=== PATIENT | male | born 1955 | race Caucasian/White ===

== ENCOUNTER 2016-12-11 09:32 | Inpatient (IN) | payer BC, MEDICAID ==
[~2016-12-11] VITALS: Ht 165.1 cm; Wt 80.7 kg
[~2016-12-11 09:32] MED LIST: ALBUT2 CONTNEB; ASPI-605 PO; COLE625T PO; FLUT1DIS3 IH; PRAV20TA PO
--- NOTE | 2016-12-11 09:40 | NUR ---
AAOX3, CAME TO ER C/O COUGH WITH CONGESTION, FEVER, WHEEZING ON AUSCULTATION X 4 DAYS. RESP IS SLIGHTLY LABORED. SKIN IS WARM AND DRY. AWAITING MD FOR EVAL.
--- NOTE | 2016-12-11 09:56 | NUR ---
BOOK JACKET COVER MACHINE OPERATOR AT BEDSIDE FOR CXR
--- NOTE | 2016-12-11 09:56 | NUR ---
CALLED RT FOR BREATHING TREATMENT
[2016-12-11] MEDS ORDERED: ALBUTEROL FS 2.5 MG/3 ML VIAL.NEB NEB ONE (10:00)
[2016-12-11] MEDS ORDERED: ALBUTEROL FS 2.5 MG/3 ML VIAL.NEB ONE (10:03)
--- NOTE | 2016-12-11 10:10 | NUR ---
IV ACCESSED TO [facility] 20. BLOOD SAMPLE SENT TO LAB
[2016-12-11 10:21] LABS: BASOPHILS % (AUTO) 0.2 % (0.0-2.0); EOSINOPHILS # (AUTO) 0.1 /CMM (0.0-0.7); EOSINOPHILS % (AUTO) 1.2 % (0.0-6.0); HEMATOCRIT 42 % (39-51); HEMOGLOBIN 14.1 g/dL (13.5-17.5); LYMPHOCYTES # (AUTO) 1.2 /CMM (0.8-4.8); LYMPHOCYTES % (AUTO) 23.3 % (20.0-44.0); MEAN CORPUSCULAR HEMOGLOBIN 30 PG (26.0-33.0); MEAN CORPUSCULAR HGB CONC 34 g/dl (31.0-36.0); MEAN CORPUSCULAR VOLUME 89 fL (80-96); MONOCYTES # (AUTO) 0.3 /CMM (0.1-1.30); MONOCYTES % (AUTO) 5.5 % (2.0-12.0); NEUTROPHILS # (AUTO) 3.6 /CMM (1.8-8.9); NEUTROPHILS % (AUTO) 69.8 % (43.0-81.0); PLATELET COUNT (AUTO) 133 /CMM (150-450); RDW COEFFICIENT OF VARIATION 13.5 (11.5-15.0); RED BLOOD CELL COUNT(AUTO) 4.68 MIL/uL (4.5-6.0); WHITE BLOOD COUNT (AUTO) 5.2 K/uL (4.3-11.0)
[2016-12-11] MEDS ORDERED: IV SET PRIMARY PUMP SET 1 EA INFUS.SET MC ONE (10:23)
[2016-12-11] MEDS ORDERED: LEVOFLOXACIN 750 MG /D5W 150ML 150 ML IV ONE (10:23)
[2016-12-11] MEDS ORDERED: LEVOFLOXACIN 750 MG /D5W 150ML 750 MG in PREMIX 1 EA IV SCH (10:30)
[2016-12-11 10:42] LABS: CALCIUM, SERUM 8.3 mg/dL (8.5-10.1); CREATININE 1.3 mg/dL (0.6-1.3)
[2016-12-11 10:50] LABS: LACTIC ACID 1.8 mmol/L (0.4-2.0)
[2016-12-11] MEDS ORDERED: CT SWABBABLE VALVE TRANS SET 1 EA INFUS.SET MC ONE (11:10)
[2016-12-11] MEDS ORDERED: IV NS 0.9% 250 ML IV ONE (11:10)
[2016-12-11] MEDS ORDERED: IOHEXOL-300 100 ML VIAL IV ONE (11:10)
--- NOTE | 2016-12-11 11:10 | NUR ---
panel paged again, dr mandel online merchandising manager [phone]
--- NOTE | 2016-12-11 11:14 | NUR ---
PT TAKEN TO CT VIA WHEELCHAIR
--- NOTE | 2016-12-11 11:30 | NUR ---
DR. EASTMAN ON PHONE TALKING TO DR. SANDERS
--- NOTE | 2016-12-11 11:39 | NUR ---
REPORT GIVEN TO NURSE ROWELL FOR ELO
[2016-12-11] MEDS ORDERED: GUAIFENESIN/CODEINE 10 ML UDC PO PRN (12:00)
[2016-12-11] MEDS ORDERED: MAGNESIUM HYDROXIDE 30 ML UDC PO PRN (12:00)
[2016-12-11] MEDS ORDERED: MAG HYDROX/AL HYDROX/SIMETH 30 ML UDC PO PRN (12:00)
[2016-12-11] MEDS ORDERED: ALBUTEROL FS 2.5 MG/3 ML VIAL.NEB CONTNEB SCH (12:00)
[2016-12-11] MEDS ORDERED: ZOLPIDEM TARTRATE 5 MG TABLET PO PRN (12:00)
[2016-12-11] MEDS ORDERED: Z GUARD REMEDY 2 OZ OINT TP PRN (12:00)
[2016-12-11] MEDS ORDERED: ONDANSETRON HCL/PF 4 MG/2 ML VIAL IVP PRN (12:00)
[2016-12-11] MEDS ORDERED: ACETAMINOPHEN 325 MG TABLET PO PRN (12:00)
[2016-12-11] MEDS ORDERED: HYDROCODONE/APAP 5/325MG 1 EACH TABLET PO PRN (12:00)
--- NOTE | 2016-12-11 12:01 | NUR ---
[place] [facility] [place]
[2016-12-11 12:05] VITALS: BP 109/62
--- NOTE | 2016-12-11 12:10 | NUR ---
RECEIVED PT FROM ER IN STABLE CONDITION, NO SOB OR DISTRESS NOTED, NO PAIN OR DISCOMFORT, TRANSFERRED TO BED SAFELY, WILL MONITOR AND START ADMISSION PROCESS.
[2016-12-11] MEDS: GUAIFENESIN 300 MG/15 ML UDC PO SCH ×2 (13:51→21:22)
[2016-12-11 16:00] VITALS: BP 91/53
--- NOTE | 2016-12-11 16:00 | NUR ---
PT SEEN BY DR. JACOBO
--- NOTE | 2016-12-11 17:00 | NUR ---
PT SEEN BY DR. KWON
--- NOTE | 2016-12-11 18:24 | NUR ---
PT IS IN STABLE CONDITION, NOTED WITH DRY COUGH, MEDICATION GIVE WITH HELP, NO SOB OR DISTRESS NOTED, NO PAIN OR DISCOMFORT, VISITED BY FAMILY, WILL INDORSE PT TO NEXT SHIFT FOR ELO
--- NOTE | 2016-12-11 19:50 | NUR ---
MS RN NOTE: PATIENT RESTING IN BED, NO ACUTE DISTRESS NOTED. BREATHING EVEN AND UNLABORED, NO SOB NOTED. HL TO RAC IN PLACE. BED LOCKED AND IN LOWEST POSITION, CALL LIGHT IN REACH, WILL CONTINUE TO MONITOR.
[2016-12-11 20:00] VITALS: BP 97/60
[2016-12-11] MEDS: ATORVASTATIN 10 MG TABLET PO SCH (21:22)
[2016-12-11] MEDS: FLUTICASONE/SALMETEROL DISKUS IH SCH (21:22)
[2016-12-12] MEDS ORDERED: ALBUTEROL FS 2.5 MG/3 ML VIAL.NEB ONE (01:02)
[2016-12-12] MEDS: ALBUTEROL FS 2.5 MG/3 ML VIAL.NEB NEB SCH ×4 (01:08→20:04)
--- NOTE | 2016-12-12 01:15 | NUR ---
MS RN NOTE: PATIENT REFUSED BREATHING TREATMENT, EXPLAINED THE RISK AND BENEFITS AND PATIENT CONTINUES TO REFUSE BREATHING TREATMENT. WILL CONTINUE TO MONITOR.
--- NOTE | 2016-12-12 02:00 | NUR ---
MS RN NOTE: PATIENT RESTING IN BED, NO ACUTE DISTRESS NOTED. BREATHING EVEN AND UNLABORED, NO SOB NOTED. BED LOCKED AND IN LOWEST POSITION, CALL LIGHT IN REACH. WILL CONTINUE TO MONITOR.
[2016-12-12] MEDS: GUAIFENESIN 300 MG/15 ML UDC PO SCH ×3 (04:48→20:21)
--- NOTE | 2016-12-12 06:05 | NUR ---
MS RN NOTE: PATIENT RESTING IN BED, NO ACUTE DISTRESS NOTED. BREATHING EVEN AND UNLABORED, NO SOB NOTED. HL TO RAC IN PLACE. PATIENT REFUSES HIM COUGH MEDICATION, SAYING THAT HE DOES NOT NEED IT AT THIS TIME BECAUSE IT CAUSED AN UPSET STOMACH FOR HIM. EXPLAINED RISK AND BENEFITS OF MEDICATION, BUT PATIENT CONTINUES TO REFUSE. BED LOCKED AND IN LOWEST POSITION, CALL LIGHT IN REACH, WILL ENDORSE TO DAY NURSE TO CONTINUE WITH PLAN OF CARE.
[2016-12-12 07:13] LABS: THYROID STIMULATING HORMONE 2.438 uIU/mL (0.358-3.74)
[2016-12-12 07:17] LABS: CALCIUM, SERUM 8.2 mg/dL (8.5-10.1); CREATININE 1.3 mg/dL (0.6-1.3); MAGNESIUM 1.7 mg/dL (1.8-2.4); POTASSIUM 3.8 mmol/L (3.5-5.1)
[2016-12-12] MEDS: PANTOPRAZOLE 40 MG TABLET.DR PO SCH (07:52)
[2016-12-12 08:00] VITALS: BP 102/63
[2016-12-12 08:12] LABS: BASOPHILS % (AUTO) 0.4 % (0.0-2.0); EOSINOPHILS % (AUTO) 0.7 % (0.0-6.0); HEMATOCRIT 39 % (39-51); HEMOGLOBIN 13.1 g/dL (13.5-17.5); LYMPHOCYTES # (AUTO) 1.4 /CMM (0.8-4.8); LYMPHOCYTES % (AUTO) 21.2 % (20.0-44.0); MEAN CORPUSCULAR HEMOGLOBIN 30 PG (26.0-33.0); MEAN CORPUSCULAR HGB CONC 34 g/dl (31.0-36.0); MEAN CORPUSCULAR VOLUME 90 fL (80-96); MONOCYTES # (AUTO) 0.4 /CMM (0.1-1.30); MONOCYTES % (AUTO) 6.5 % (2.0-12.0); NEUTROPHILS # (AUTO) 4.8 /CMM (1.8-8.9); NEUTROPHILS % (AUTO) 71.2 % (43.0-81.0); PLATELET COUNT (AUTO) 105 /CMM (150-450); RDW COEFFICIENT OF VARIATION 13.9 (11.5-15.0); RED BLOOD CELL COUNT(AUTO) 4.34 MIL/uL (4.5-6.0); WHITE BLOOD COUNT (AUTO) 6.7 K/uL (4.3-11.0)
[2016-12-12] MEDS ORDERED: PRAVASTATIN SODIUM 20 MG TABLET PO SCH (09:00)
[2016-12-12] MEDS: FLUTICASONE/SALMETEROL DISKUS IH SCH ×2 (09:07→20:21)
[2016-12-12] MEDS: ASPIRIN EC 81 MG TABLET.DR PO SCH (09:08)
--- NOTE | 2016-12-12 09:46 | NUR ---
RT NOTES Breathing treatment due at 7:30am given at this time due to patient refused at due time. aware.
[2016-12-12] MEDS ORDERED: IV SET PRIMARY PUMP SET 1 EA INFUS.SET MC ONE (10:51)
[2016-12-12] MEDS ORDERED: SECONDARY IV SET 1 EA INFUS.SET MC ONE ×2 (10:51→16:39)
[2016-12-12] MEDS ORDERED: IV NS 0.9% 250 ML IV ONE (10:51)
[2016-12-12] MEDS ORDERED: LEVOFLOXACIN 750 MG /D5W 150ML 750 MG in PREMIX 1 EA IV SCH (11:00)
[2016-12-12] MEDS ORDERED: Magnesium 1GM/D5W 100ML PREMIX 100 ML IV SCH (12:55)
[2016-12-12] MEDS ORDERED: LEVO750T46 PO (13:03)
[2016-12-12] MEDS ORDERED: MAGNESIUM OXIDE 400 MG TABLET PO ONE (13:30)
[2016-12-12] MEDS ORDERED: FEE PK DOSING 1 MIN EA MC ONE (15:35)
[2016-12-12 16:00] VITALS: BP 115/60
[2016-12-12] MEDS: VANCOMYCIN 1 GM in IV D5W 250 ML IV SCH (16:38)
--- NOTE | 2016-12-12 18:00 | NUR ---
MS RN NOTES Ganesh bailon EAR NOSE AND THROAT SPECIALIST came seen and examined the patient and ordered blood culture x2, all orders carried out and noted. Will continue to monitor accordingly.
--- NOTE | 2016-12-12 19:05 | NUR ---
ms rn closing notes All needs provided, attended, and anticipated. No SOB or distress noted. Kept patient clean and comfortable in bed, call light with in patient reach. Endorsed to next shift RN to continue care. Will continue to monitor accordingly.
[2016-12-12 20:00] VITALS: BP 109/58
[2016-12-12] MEDS: ATORVASTATIN 10 MG TABLET PO SCH (22:15)
[2016-12-13] MEDS: ALBUTEROL FS 2.5 MG/3 ML VIAL.NEB NEB SCH ×3 (00:51→13:30)
--- NOTE | 2016-12-13 03:15 | NUR ---
MS RN NOTE: PATIENT SLEEPING IN BED, NO ACUTE DISTRESS NOTED. BREATHING EVEN AND UNLABORED, NO SOB NOTED. BED LOCKED AND IN LOWEST POSITION, CALL LIGHT IN REACH, WILL CONTINUE TO MONITOR.
[2016-12-13] MEDS: VANCOMYCIN 1 GM in IV D5W 250 ML IV SCH (04:44)
[2016-12-13] MEDS: GUAIFENESIN 300 MG/15 ML UDC PO SCH ×2 (04:49→12:17)
--- NOTE | 2016-12-13 06:15 | NUR ---
MS RN NOTE: PATIENT RESTING IN BED, NO ACUTE DISTRESS NOTED. BREATHING EVEN AND UNLABORED, NO SOB NOTED. HL TO RAC IN PLACE. BED LOCKED AND IN LOWEST POSITION, CALL LIGHT IN REACH, WILL ENDORSE TO DAY NURSE TO CONTINUE WITH PLAN OF CARE.
[2016-12-13 07:02] LABS: CALCIUM, SERUM 8.1 mg/dL (8.5-10.1); CREATININE 1.1 mg/dL (0.6-1.3); MAGNESIUM 1.8 mg/dL (1.8-2.4); POTASSIUM 3.8 mmol/L (3.5-5.1)
[2016-12-13 07:05] LABS: BASOPHILS % (AUTO) 0.3 % (0.0-2.0); EOSINOPHILS # (AUTO) 0.1 /CMM (0.0-0.7); EOSINOPHILS % (AUTO) 1.7 % (0.0-6.0); HEMATOCRIT 39 % (39-51); HEMOGLOBIN 12.7 g/dL (13.5-17.5); LYMPHOCYTES # (AUTO) 1.2 /CMM (0.8-4.8); LYMPHOCYTES % (AUTO) 21.7 % (20.0-44.0); MEAN CORPUSCULAR HEMOGLOBIN 30 PG (26.0-33.0); MEAN CORPUSCULAR HGB CONC 33 g/dl (31.0-36.0); MEAN CORPUSCULAR VOLUME 89 fL (80-96); MONOCYTES # (AUTO) 0.4 /CMM (0.1-1.30); MONOCYTES % (AUTO) 7.6 % (2.0-12.0); NEUTROPHILS # (AUTO) 3.9 /CMM (1.8-8.9); NEUTROPHILS % (AUTO) 68.7 % (43.0-81.0); PLATELET COUNT (AUTO) 101 /CMM (150-450); RDW COEFFICIENT OF VARIATION 13.6 (11.5-15.0); WHITE BLOOD COUNT (AUTO) 5.7 K/uL (4.3-11.0)
--- NOTE | 2016-12-13 07:30 | NUR ---
MS RN AM NOTE: PATIENT IN BED, AAO X 4, TONGAN SPEAKING, NOT IN ANY DISTRESS, ON ROOM AIR, DENIES ANY PAIN AT THIS TIME, HL TO RAC G20 IN PLACE, SITE CLEAR, AMBULATORY, REGULAR DIET, BED LOCKED AND IN LOWEST POSITION, CALL LIGHT IN REACH, WILL CONTINUE TO MONITOR.
[2016-12-13 08:00] VITALS: BP 106/68
[2016-12-13] MEDS: PANTOPRAZOLE 40 MG TABLET.DR PO SCH (08:43)
[2016-12-13] MEDS: ASPIRIN EC 81 MG TABLET.DR PO SCH (08:44)
[2016-12-13] MEDS: FLUTICASONE/SALMETEROL DISKUS IH SCH (08:44)
--- NOTE | 2016-12-13 09:30 | NUR ---
MS RN NOTES ADMINISTERED DUE MEDS.
[2016-12-13] MEDS ORDERED: LEVOFLOXACIN (500MG) 500 MG TABLET PO SCH (11:00)
[2016-12-13 13:53] VITALS: BP 108/68
--- NOTE | 2016-12-13 13:53 | NUR ---
MS RN DC NOTES PATIENT DISCHARGED TO HOME TODAY PER MD IN STABLE CONDITION. PROVIDED DC INSTRUCTIONS, MED RECON LIST/PRESCRIPTION AND HEALTH TEACHINGS. PT TO FOLLOW UP WITH PCP IN 1-2 WEEKS AND WILL MAKE OWN APPOINTMENT. RAC HL REMOVED. NO BLEEDING, DRESSING IN PLACE. ALL BELONGINGS CHECKED AND RETURNED. ALL PAPERWORKS SIGNED. ACCOMPANIED BY DARIUS ABURTO TO [facility] AND WILL BE TRANSPORTED HOME VIA PRIVATE CAR BY .
== END 2016-12-13 14:15 | disposition home or self-care (01) | DRG 140 ==
LOC: ER 09:35 → MEDSG2 11:41
PROVIDERS: ADMIT Student in an Organized Health Care Education/Training Program; ATTEND Student in an Organized Health Care Education/Training Program
DX: J44.0 Chronic obstructive pulmonary disease with (acute) lower respiratory infection (principal); J15.9 Unspecified bacterial pneumonia; N17.9 Acute kidney failure, unspecified; E83.42 Hypomagnesemia; J44.1 Chronic obstructive pulmonary disease with (acute) exacerbation; E78.5 Hyperlipidemia, unspecified; N18.9 Chronic kidney disease, unspecified; Z87.891 Personal history of nicotine dependence; Z95.0 Presence of cardiac pacemaker; D64.9 Anemia, unspecified; E66.3 Overweight; Z85.118 Personal history of other malignant neoplasm of bronchus and lung; Z92.21 Personal history of antineoplastic chemotherapy; Z92.3 Personal history of irradiation; Z68.29 Body mass index [BMI] 29.0-29.9, adult; I12.9 Hypertensive chronic kidney disease with stage 1 through stage 4 chronic kidney disease, or unspecified chronic kidney disease; I25.10 Atherosclerotic heart disease of native coronary artery without angina pectoris
CPT/HCPCS: 36415; 71010-TC; 71260-TC; 80048-TC; 80061-TC; 83605-TC; 83735-TC; 84100-TC; 84443-TC; 85025-TC; 87040-TC; 94799-TC; A4216; A4606; J1956; J3370; J7050; J7060; Q9967; Z7610

== ENCOUNTER 2017-02-13 08:34 | Inpatient (IN) | payer BC, MEDICAID ==
[~2017-02-13] VITALS: Ht 162.6 cm; Wt 82.6 kg
[~2017-02-13 08:34] MED LIST changes: +LEVO750T46 PO
[2017-02-13 09:11] LABS: BASOPHILS % (AUTO) 0.2 % (0.0-2.0); EOSINOPHILS # (AUTO) 0.1 /CMM (0.0-0.7); EOSINOPHILS % (AUTO) 1.3 % (0.0-6.0); HEMATOCRIT 42 % (39-51); HEMOGLOBIN 14.1 g/dL (13.5-17.5); LYMPHOCYTES # (AUTO) 1.4 /CMM (0.8-4.8); LYMPHOCYTES % (AUTO) 16.4 % (20.0-44.0); MEAN CORPUSCULAR HEMOGLOBIN 30 PG (26.0-33.0); MEAN CORPUSCULAR HGB CONC 33 g/dl (31.0-36.0); MEAN CORPUSCULAR VOLUME 91 fL (80-96); MONOCYTES # (AUTO) 0.4 /CMM (0.1-1.30); MONOCYTES % (AUTO) 5.1 % (2.0-12.0); NEUTROPHILS # (AUTO) 6.6 /CMM (1.8-8.9); PLATELET COUNT (AUTO) 153 /CMM (150-450); RDW COEFFICIENT OF VARIATION 14.5 (11.5-15.0); RED BLOOD CELL COUNT(AUTO) 4.64 MIL/uL (4.5-6.0); WHITE BLOOD COUNT (AUTO) 8.5 K/uL (4.3-11.0)
[2017-02-13] MEDS ORDERED: IV NS 0.9% 250 ML IV ONE (09:12)
[2017-02-13] MEDS ORDERED: IOHEXOL-350 100 ML VIAL IV ONE (09:12)
[2017-02-13 09:26] LABS: CALCIUM, SERUM 8.5 mg/dL (8.5-10.1); CARBON DIOXIDE 24 mmol/L (21-32); CHLORIDE 109 mmol/L (98-107); CREATININE 1.4 mg/dL (0.6-1.3); GLUCOSE 143 mg/dL (74-106); SODIUM SERUM 142 mmol/L (136-145); UREA NITROGEN, BLOOD 21 mg/dL (7-18)
[2017-02-13 09:33] LABS: ALANINE AMINOTRANSFERASE 33 U/L (12-78); ALBUMIN 3.6 g/dL (3.4-5.0); ALKALINE PHOSPHATASE 110 U/L (46-116); ASPARTATE AMINOTRANSFERASE 24 U/L (15-37); BILIRUBIN,DIRECT 0.4 mg/dL (0.0-0.2); BILIRUBIN,TOTAL 1.1 mg/dL (0.2-1.0); TOTAL PROTEIN, SERUM 7.2 g/dL (6.4-8.2)
[2017-02-13 10:03] LABS: B-TYPE NATRIURETIC PEPTIDE 1659 PG/ML (0-125)
[2017-02-13 10:21] LABS: TROPONIN I < 0.017 ng/mL (0.00-0.056)
[2017-02-13 10:22] LABS: INR 1.09 (0.87-1.13); PROTHROMBIN TIME 11.7 SECS (9.5-12.7)
[2017-02-13] MEDS ORDERED: FUROSEMIDE 40 MG/4 ML VIAL IV ONE (11:30)
[2017-02-13] MEDS ORDERED: FUROSEMIDE 40 MG/4 ML VIAL ONE (11:47)
[2017-02-13] MEDS ORDERED: LEVO50TA8 PO (14:11)
[2017-02-13] MEDS: methylPREDNISolone SOD SUCC 40 MG/ML VIAL IV SCH (19:53)
[2017-02-13] MEDS ORDERED: AZITHROMYCIN 250 MG TABLET PO SCH (20:00)
[2017-02-13 20:07] VITALS: BP 118/66
[2017-02-13] MEDS ORDERED: COLESEVELAM HCL 1875 MG PO SCH (21:00)
[2017-02-13] MEDS: CHOLESTYRAMINE/ASPARTAME 4 G/PKT PACKET PO SCH (21:12)
[2017-02-13] MEDS ORDERED: ATORVASTATIN 10 MG TABLET PO SCH (22:00)
[2017-02-14 00:34] VITALS: BP 124/70
[2017-02-14 04:00] VITALS: BP 112/69
[2017-02-14 07:03] VITALS: BP 115/65
[2017-02-14] MEDS ORDERED: LEVOTHYROXINE SODIUM 50 MCG TABLET PO SCH (07:30)
[2017-02-14 08:01] LABS: BASOPHILS % (AUTO) 0.4 % (0.0-2.0); HEMATOCRIT 46 % (39-51); HEMOGLOBIN 15.5 g/dL (13.5-17.5); LYMPHOCYTES # (AUTO) 0.7 /CMM (0.8-4.8); LYMPHOCYTES % (AUTO) 6.9 % (20.0-44.0); MEAN CORPUSCULAR HEMOGLOBIN 31 PG (26.0-33.0); MEAN CORPUSCULAR HGB CONC 34 g/dl (31.0-36.0); MEAN CORPUSCULAR VOLUME 93 fL (80-96); MONOCYTES % (AUTO) 0.4 % (2.0-12.0); NEUTROPHILS # (AUTO) 9.2 /CMM (1.8-8.9); NEUTROPHILS % (AUTO) 92.3 % (43.0-81.0); PLATELET COUNT (AUTO) 164 /CMM (150-450); RDW COEFFICIENT OF VARIATION 14.4 (11.5-15.0)
[2017-02-14 08:15] LABS: BILIRUBIN,TOTAL 1.2 mg/dL (0.2-1.0); CALCIUM, SERUM 9.1 mg/dL (8.5-10.1); CREATININE 1.5 mg/dL (0.6-1.3); POTASSIUM 4.8 mmol/L (3.5-5.1); TOTAL PROTEIN, SERUM 8.5 g/dL (6.4-8.2)
[2017-02-14] MEDS: methylPREDNISolone SOD SUCC 40 MG/ML VIAL IV SCH ×2 (08:52→13:41)
[2017-02-14] MEDS: CHOLESTYRAMINE/ASPARTAME 4 G/PKT PACKET PO SCH (08:53)
[2017-02-14] MEDS ORDERED: ASPIRIN EC 81 MG TABLET.DR PO SCH (09:00)
[2017-02-14] MEDS ORDERED: FUROSEMIDE 20 MG/2 ML VIAL IV ONE (09:00)
[2017-02-14] MEDS ORDERED: FLUTICASONE/SALMETEROL DISKUS IH SCH (09:00)
[2017-02-14] MEDS ORDERED: REGADENOSON 0.4 MG/5 ML DISP.SYRIN IVP ONE (09:00)
[2017-02-14] MEDS ORDERED: ENOXAPARIN SODIUM 30 MG/0.3 ML DISP.SYRIN SQ SCH (09:00)
[2017-02-14] MEDS ORDERED: ALBUTEROL HALF STRENGTH 1.25 MG/3 ML VIAL.NEB NEB SCH (10:30)
[2017-02-14] MEDS: ALBUTEROL HALF STRENGTH 1.25 MG/3 ML VIAL.NEB NEB SCH ×2 (10:58→15:33)
[2017-02-14] MEDS: IPRATROPIUM NEB FS 0.5 MG/2.5 ML AMPUL.NEB NEB SCH ×2 (10:58→15:33)
[2017-02-14 16:00] VITALS: BP 114/59
== END 2017-02-14 17:30 | disposition home or self-care (01) | DRG 140 ==
LOC: ER 08:35 → TELE 13:14 → MED 02-14 12:23
PROVIDERS: ADMIT Internal Medicine; ATTEND Internal Medicine
DX: J44.0 Chronic obstructive pulmonary disease with (acute) lower respiratory infection (principal); N17.0 Acute kidney failure with tubular necrosis; I50.33 Acute on chronic diastolic (congestive) heart failure; J15.9 Unspecified bacterial pneumonia; I13.0 Hypertensive heart and chronic kidney disease with heart failure and stage 1 through stage 4 chronic kidney disease, or unspecified chronic kidney disease; J44.1 Chronic obstructive pulmonary disease with (acute) exacerbation; N18.9 Chronic kidney disease, unspecified; Z85.118 Personal history of other malignant neoplasm of bronchus and lung; E03.9 Hypothyroidism, unspecified; E78.5 Hyperlipidemia, unspecified; Z87.891 Personal history of nicotine dependence; Z95.0 Presence of cardiac pacemaker; Z92.21 Personal history of antineoplastic chemotherapy; Z92.3 Personal history of irradiation; Z79.899 Other long term (current) drug therapy
CPT/HCPCS: 36415; 71010-TC; 80048-TC; 80053-TC; 80061-TC; 80076-TC; 82550-TC; 83880; 84484-TC; 85025-TC; 85730-TC; 93307-TC; A4606; A9502; J1650; J1940; J2785; J2920; J7050; Q9967; Z7610

== ENCOUNTER 2017-07-13 09:06 | Inpatient (IN) | payer MEDICAID ==
[~2017-07-13] VITALS: Ht 177.8 cm; Wt 102.1 kg
[2017-07-13] VITALS (48 sets, daily range): BP systolic 69–134; BP diastolic 35–101
[~2017-07-13 09:06] MED LIST changes: -ALBUT2 CONTNEB; +ASPI-605 GT; -ASPI-605 PO; +LEVO50TA8 GT; -LEVO750T46 PO
--- NOTE | 2017-07-13 09:06 | NUR ---
BIB RA 77 FROM [facility],UNRESPONSIVE NOTED DURING NURSING ROUNDS AT 0600, LKWT UNKNOWN([facility] 15 LAST NIGHT). PLACED ON MONITOR. PT ON MECH VENT. GTUBE IN PLACED. AWAITING MD ORDER.
[2017-07-13] MEDS ORDERED: IV NS 0.9% 500 ML BAG IV ONE ×2 (09:30→10:30)
[2017-07-13] MEDS ORDERED: ACET650S26 GT (09:45)
[2017-07-13] MEDS ORDERED: SIME80TA15 GT (09:45)
[2017-07-13] MEDS ORDERED: BISA10SU8 RC (09:45)
[2017-07-13] MEDS ORDERED: ACET-2605 GT (09:45)
[2017-07-13] MEDS ORDERED: FURO40TA5 GT (09:45)
[2017-07-13] MEDS ORDERED: TRAM50TA2 GT (09:45)
[2017-07-13] MEDS ORDERED: CLON0.5T4 GT (09:45)
[2017-07-13] MEDS ORDERED: MULT1TAB11 GT (09:45)
[2017-07-13] MEDS ORDERED: AMIO200T2 GT (09:45)
[2017-07-13] MEDS ORDERED: ASCO500S2 GT (09:45)
[2017-07-13] MEDS ORDERED: BLOO-668 IN (09:45)
[2017-07-13] MEDS ORDERED: MAGN400O6 GT (09:45)
[2017-07-13] MEDS ORDERED: LACT-96 GT (09:45)
[2017-07-13] MEDS ORDERED: ENOX40DI SQ (09:45)
[2017-07-13] MEDS ORDERED: AMIN30LI4 GT (09:45)
[2017-07-13] MEDS ORDERED: FAMO-131 GT (09:45)
[2017-07-13] MEDS ORDERED: ERYT200S16 GT (09:45)
[2017-07-13] MEDS ORDERED: ZINC220C8 GT (09:45)
[2017-07-13] MEDS ORDERED: DOCU50LI GT (09:45)
[2017-07-13] MEDS ORDERED: SENN8.6T6 GT (09:45)
[2017-07-13] MEDS ORDERED: INSU100V3 SQ (09:45)
[2017-07-13] MEDS ORDERED: IPRA3AMP IH ×2 (09:45)
[2017-07-13] MEDS ORDERED: NA P133E RC (09:45)
[2017-07-13] MEDS ORDERED: ACETAMINOPHEN ES 500 MG TABLET ONE (09:49)
[2017-07-13 09:53] LABS: TROPONIN I 0.184 ng/mL (0.00-0.056)
[2017-07-13 09:54] LABS: APPEARANCE,URINE Turbid (CLEAR); BILIRUBIN,URINE MODERATE (NEGATIVE); BLOOD, URINE Moderate Ery/uL (NEGATIVE); COLOR,URINE Dark (YELLOW); KETONES,URINE 15 (NEGATIVE); LEUKOCYTE ESTERASE ,URINE Small (NEGATIVE); NITRITE, URINE Negative (NEGATIVE); PROTEIN,URINE 100 mg/dl (NEGATIVE); UGLUCOSE 100 MG/DL mg/dL (NEGATIVE)
[2017-07-13 09:57] LABS: ALANINE AMINOTRANSFERASE 23 U/L (12-78); ALBUMIN 1.5 g/dL (3.4-5.0); ALKALINE PHOSPHATASE 186 U/L (46-116); ASPARTATE AMINOTRANSFERASE 27 U/L (15-37); B-TYPE NATRIURETIC PEPTIDE 15045 PG/ML (0-125); BILIRUBIN,DIRECT 0.7 mg/dL (0.0-0.2); BILIRUBIN,TOTAL 0.9 mg/dL (0.2-1.0); CALCIUM, SERUM 7.4 mg/dL (8.5-10.1); CARBON DIOXIDE 24 mmol/L (21-32); CHLORIDE 106 mmol/L (98-107); GLUCOSE 154 mg/dL (74-106); SODIUM SERUM 142 mmol/L (136-145); TOTAL PROTEIN, SERUM 5.4 g/dL (6.4-8.2)
[2017-07-13 10:00] LABS: EOSINOPHILS # (AUTO) 0.1 /CMM (0.0-0.7); EOSINOPHILS % (AUTO) 0.8 % (0.0-6.0); HEMATOCRIT 25 % (39-51); HEMOGLOBIN 7.8 g/dL (13.5-17.5); LYMPHOCYTES # (AUTO) 1.3 /CMM (0.8-4.8); LYMPHOCYTES % (AUTO) 8.3 % (20.0-44.0); MEAN CORPUSCULAR HEMOGLOBIN 30 PG (26.0-33.0); MEAN CORPUSCULAR HGB CONC 32 g/dl (31.0-36.0); MEAN CORPUSCULAR VOLUME 95 fL (80-96); MONOCYTES # (AUTO) 0.5 /CMM (0.1-1.30); MONOCYTES % (AUTO) 3.1 % (2.0-12.0); NEUTROPHILS % (AUTO) 87.8 % (43.0-81.0); PLATELET COUNT (AUTO) 273 /CMM (150-450); RDW COEFFICIENT OF VARIATION 24.3 (11.5-15.0); RED BLOOD CELL COUNT(AUTO) 2.56 MIL/uL (4.5-6.0); UREA NITROGEN, BLOOD 99 mg/dL (7-18); WHITE BLOOD COUNT (AUTO) 15.9 K/uL (4.3-11.0)
[2017-07-13] MEDS ORDERED: ACETAMINOPHEN ES 500 MG TABLET GT ONE (10:00)
[2017-07-13 10:05] LABS: BACTERIA,URINE Few /HPF (None Seen); SQUAMOUS EPITHELIAL CELL,UR Rare /HPF (None Seen); URINE AMORPHOUS PHOSPHATES Moderate /HPF (None Seen)
--- NOTE | 2017-07-13 10:07 | NUR ---
AC 16 TV 600 PEEP 10 FIO2 50 % Addendum: 07/13/17 at 1020 by DLACSON PEEP 0
[2017-07-13 10:16] LABS: INR 1.28 (0.87-1.13); PROTHROMBIN TIME 13.3 SECS (9.5-12.7)
[2017-07-13 10:24] LABS: ABG BASE EXCESS -4.1 mmol/L; ABG OXYGEN SATURATION 98.9 % (92.0-98.5); ABG PCO2 31.6 mmHg (35.0-45.0); ABG PH 7.416 (7.350-7.450); ABG PO2 202.3 mmHg (75.0-100.0); AaDO2 118.7 mmHg; COHb 0.5 % (0.5-1.5); O2Hb 97.4 % (94.0-97.0); PEEP,BG 5 cm H2O; SITE, ABG Right Radial; VENT MODE, BG AC 16 600 50% +5; VT, ABG 600 mL
--- NOTE | 2017-07-13 10:29 | NUR ---
RT NOTE PT PLACED ON VENT PER MD ORDER. PT HAS SHILEY 6 D[address] CUFFED TRACH IN PLACE. CUFF INFLATED. SETTINGS PRESCRIBED. ALARMS SET PER PROTOCOL AND AUDIBLE. VENT PLUGGED IN TO RED OUTLET. AMBU BAG AT BED SIDE. Addendum: 07/13/17 at 1031 by DANIELLE MARVIN RT Amended: Links added.
[2017-07-13] MEDS ORDERED: MEROPENEM 1 G in IV NS 0.9% 100 ML IV ONE (10:30)
[2017-07-13] MEDS ORDERED: VANCOMYCIN 1 GM in IV D5W 250 ML IV ONE (10:30)
[2017-07-13 10:42] LABS: BAND % (MANUAL) 18 % (0.0-5.0); LYMPHOCYTES % (MANUAL) 7 % (16-48); MONOCYTES % (MANUAL) 4 % (0-11.0); NEUTROPHILS % (MANUAL) 71 (42-76)
--- NOTE | 2017-07-13 10:50 | NUR ---
CALLED PHARMACY FOR PROTONIX DRIP
--- NOTE | 2017-07-13 10:55 | NUR ---
CALLED [facility]
[2017-07-13] MEDS ORDERED: PANTOPRAZOLE 80 MG in IV NS 0.9% 100 ML IV ONE (11:00)
[2017-07-13] MEDS ORDERED: IV NS 0.9% 1,000 ML BAG IV ONE (11:00)
[2017-07-13] MEDS ORDERED: PANTOPRAZOLE 80 MG in IV NS 0.9% 500 ML IV ONE (11:00)
[2017-07-13] MEDS ORDERED: IV NS 0.9% 1,000 ML IV PRN (11:18)
--- NOTE | 2017-07-13 11:25 | NUR ---
CALLED PHARMACY AGAIN FOR PROTONIX DRIP PRIOR TO TRANSFER TO ICU
[2017-07-13] MEDS ORDERED: ACETAMINOPHEN 325 MG TABLET PO PRN (11:30)
[2017-07-13] MEDS ORDERED: ZOLPIDEM TARTRATE 5 MG TABLET PO PRN (11:30)
[2017-07-13] MEDS ORDERED: MAG HYDROX/AL HYDROX/SIMETH 30 ML UDC PO PRN (11:30)
[2017-07-13] MEDS ORDERED: BISACODYL SUPP (10 MG) 10 MG/SUPP.RECT SUPP.RECT RC SCH (11:30)
[2017-07-13] MEDS ORDERED: LEVOFLOXACIN 500 MG /D5W 100ML 100 ML IV SCH (11:30)
[2017-07-13] MEDS ORDERED: ONDANSETRON HCL/PF 4 MG/2 ML VIAL IVP PRN (11:30)
[2017-07-13] MEDS ORDERED: NOREPINEPHRINE 8 MG in IV D5W 500 ML IV PRN ×2 (11:30→13:00)
[2017-07-13] MEDS ORDERED: MAGNESIUM HYDROXIDE 30 ML UDC PO PRN (11:30)
[2017-07-13] MEDS ORDERED: clonazePAM 0.5 MG TABLET GT PRN (11:30)
[2017-07-13] MEDS ORDERED: Z GUARD REMEDY 2 OZ OINT TP PRN (11:30)
[2017-07-13] MEDS ORDERED: NA PHOS,M-B/NA PHOS,DI-BA 1 EA ENEMA RC PRN (11:30)
[2017-07-13] MEDS ORDERED: DEXTROSE 50%-WATER 50 ML DISP.SYRIN IV PRN (11:30)
[2017-07-13] MEDS ORDERED: ACETAMINOPHEN 650 MG/20.3 ML UDC GT PRN (11:30)
[2017-07-13] MEDS ORDERED: Medication Not On Formulary EA (Ipratropium/Albuterol Sulfate (Duoneb 2.5-0.5 Mg/3 Ml So IH PRN (11:30)
--- NOTE | 2017-07-13 11:30 | NUR ---
REPORT GIVEN TO KEITH LANGE ICU [address] RAMOS ADMITTING TRANSFER VIA ACLS PROTOCOL
--- NOTE | 2017-07-13 11:41 | NUR ---
TRANSFER TO ICU FROM CT SCAN
[2017-07-13] MEDS ORDERED: PIPERACILLIN /TAZOBACTAM 3.375 G in IV D5W 100 ML IV SCH (12:00)
--- NOTE | 2017-07-13 12:03 | NUR ---
WARP SPOOLER RECEIVED PATIENT FROM THE ER ON [facility]. PATIENT NOTED TO BE ON THE VENT. RESP RATE AT 36. VENT SETTINGS REVIEWED AND VERIFIED. AFEBRILE. V PACING NOTED ON MONITOR. BP MONITORED. KULKARNI DRAINING TO GRAVITY. TURNED AND 4 PERSON ASSIST TRANSFER. TURNED AND REPOSITIONED FOR COMFORT AND WOUND PREVENTION. WILL CONTINUE TO MONITOR AND PROVIDE CARE.
[2017-07-13] MEDS: LORAZEPAM INJ 2 MG/ML VIAL IV PRN (12:25)
[2017-07-13] MEDS ORDERED: ALBUTEROL FS 2.5 MG/3 ML VIAL.NEB NEB PRN (13:00)
[2017-07-13] MEDS ORDERED: FIBERSOURCE HN 1,000 ML BOTTLE GT PRN (13:00)
[2017-07-13] MEDS ORDERED: ACETAMINOPHEN LIQUID 325 MG/10.1 ML UDC GT PRN (13:00)
[2017-07-13] MEDS: IV NS 0.9% 1,000 ML IV PRN (13:00)
[2017-07-13] MEDS ORDERED: ERYTHROMYCIN ETHYLSUCCINATE 200 MG/5 ML SUSPENSION GT SCH (13:00)
[2017-07-13] MEDS ORDERED: IPRATROPIUM NEB FS 0.5 MG/2.5 ML AMPUL.NEB NEB PRN (13:00)
[2017-07-13] MEDS ORDERED: FEE PK DOSING 1 MIN EA MC ONE (13:19)
[2017-07-13] MEDS: ALBUTEROL FS 2.5 MG/3 ML VIAL.NEB NEB SCH ×2 (13:30→19:50)
[2017-07-13] MEDS: IPRATROPIUM NEB FS 0.5 MG/2.5 ML AMPUL.NEB NEB SCH ×2 (13:30→19:50)
[2017-07-13] MEDS ORDERED: Medication Not On Formulary EA (Ipratropium/Albuterol Sulfate (Duoneb 2.5-0.5 Mg/3 Ml So IH SCH (13:30)
[2017-07-13] MEDS: BLOOD SUGAR DIAGNOSTIC 1 EACH STRIP IN SCH ×2 (13:49→19:23)
[2017-07-13] MEDS: ALBUMIN 25% 25 GM in PREMIX 1 EA IV SCH ×2 (13:54→17:47)
[2017-07-13] MEDS: LACTULOSE 10 G/15 ML UDC (PYXIS) PO SCH ×4 (13:54→20:00)
--- NOTE | 2017-07-13 14:22 | NUR ---
PATIENT NOT STABLE TO COME DOWN FOR CT ABDOMEN PELVIS WITHOUT CONTRAST PER RN.
[2017-07-13] MEDS ORDERED: PANTOPRAZOLE 80 MG in IV NS 0.9% 500 ML IV SCH (14:30)
[2017-07-13] MEDS ORDERED: FUROSEMIDE 40 MG/4 ML VIAL IV ONE (14:30)
[2017-07-13] MEDS: PIPERACILLIN /TAZOBACTAM 2.25 G in IV D5W 50 ML IV SCH ×2 (15:00→17:48)
[2017-07-13] MEDS ORDERED: FUROSEMIDE 20 MG/2 ML VIAL IV PRN (15:00)
--- NOTE | 2017-07-13 15:30 | NUR ---
TRACK GRINDER OPERATOR DR. RAMOS MADE AWARE THAT PATIENT IS NO NOW ON 15 MCG LEVOPHED. RECEIVED MD RECOMMENDATION TO HOLD OFF ON CT ABD AT THIS TIME AND WAIT FOR THE PATIENT TO BE MORE STABLE.
[2017-07-13] MEDS: NOREPINEPHRINE 16 MG in IV D5W 500 ML IV PRN ×2 (15:40→19:25)
[2017-07-13] MEDS ORDERED: SIMETHICONE 80 MG TAB.CHEW GT SCH (17:00)
[2017-07-13] MEDS ORDERED: SENNOSIDES 8.6 MG TABLET GT SCH (17:00)
[2017-07-13] MEDS: PANTOPRAZOLE 40 MG VIAL IV SCH (17:48)
[2017-07-13] MEDS: ERYTHROMYCIN ETHYLSUCCINATE 200 MG/5 ML SUSPENSION GT SCH (17:48)
--- NOTE | 2017-07-13 20:00 | NUR ---
DAIRY BACTERIOLOGIST PT RCD W/DX ENCEPHALOPATHY; MIN RESPONSE TO PAINFUL STIMULI. VPACING ON MONITOR. SHILEY 6 W/VENT SETTINGS AC 16 600 40%; PT HAS THICK BLOODY SECRETIONS. G TUBE CLAMPED; PT TO REMAIN NPO UNTIL STABLE ENOUGH FOR ABD CT. PT WITH KULKARNI CATH; OLIGURIC AT THIS TIME; PT WEEPING FROM BUE. JEAN PAUL PICC INSERTED BY PICC NURSE AT THIS TIME. LEVOPHED AT 16 MCG/MIN; CONTINUE TO TITRATE ACCORDINGLY.
--- NOTE | 2017-07-13 21:00 | NUR ---
CAPTAIN WAITER/WAITRESS PT TOLERATED ONE UNIT PRBC; NO IMMEDIATE S/O REACTION NOTED. LASIX IVP TO FOLLOW. CONTINUE TO MONITOR.
[2017-07-14] VITALS (98 sets, daily range): BP systolic 82–130; BP diastolic 19–73
[2017-07-14] MEDS: BLOOD SUGAR DIAGNOSTIC 1 EACH STRIP IN SCH ×2 (00:35→05:30)
[2017-07-14] MEDS: ERYTHROMYCIN ETHYLSUCCINATE 200 MG/5 ML SUSPENSION GT SCH ×2 (00:35→05:30)
[2017-07-14] MEDS: ALBUMIN 25% 25 GM in PREMIX 1 EA IV SCH ×2 (00:35→05:30)
[2017-07-14] MEDS: PIPERACILLIN /TAZOBACTAM 2.25 G in IV D5W 50 ML IV SCH ×2 (00:35→05:01)
[2017-07-14] MEDS: INSULIN REGULAR, HUMAN 100 UNIT/ML 3 ML VIAL SQ PRN ×2 (00:37→05:33)
[2017-07-14] MEDS: IPRATROPIUM NEB FS 0.5 MG/2.5 ML AMPUL.NEB NEB SCH ×2 (01:14→07:45)
[2017-07-14] MEDS: ALBUTEROL FS 2.5 MG/3 ML VIAL.NEB NEB SCH ×2 (01:14→07:45)
[2017-07-14] MEDS: LACTULOSE 10 G/15 ML UDC (PYXIS) PO SCH (02:04)
[2017-07-14] MEDS: IV NS 0.9% 1,000 ML IV PRN (02:05)
[2017-07-14 05:12] LABS: BASOPHILS % (AUTO) 0.1 % (0.0-2.0); EOSINOPHILS # (AUTO) 0.1 /CMM (0.0-0.7); HEMATOCRIT 24 % (39-51); HEMOGLOBIN 7.9 g/dL (13.5-17.5); LYMPHOCYTES # (AUTO) 0.6 /CMM (0.8-4.8); LYMPHOCYTES % (AUTO) 5.2 % (20.0-44.0); MEAN CORPUSCULAR HEMOGLOBIN 30 PG (26.0-33.0); MEAN CORPUSCULAR HGB CONC 33 g/dl (31.0-36.0); MEAN CORPUSCULAR VOLUME 93 fL (80-96); MONOCYTES # (AUTO) 0.2 /CMM (0.1-1.30); MONOCYTES % (AUTO) 1.3 % (2.0-12.0); NEUTROPHILS # (AUTO) 10.9 /CMM (1.8-8.9); NEUTROPHILS % (AUTO) 92.4 % (43.0-81.0); PLATELET COUNT (AUTO) 218 /CMM (150-450); RDW COEFFICIENT OF VARIATION 22.9 (11.5-15.0); RED BLOOD CELL COUNT(AUTO) 2.63 MIL/uL (4.5-6.0); WHITE BLOOD COUNT (AUTO) 11.8 K/uL (4.3-11.0)
[2017-07-14 05:21] LABS: ALBUMIN 2.4 g/dL (3.4-5.0); BILIRUBIN,TOTAL 1.1 mg/dL (0.2-1.0); CALCIUM, SERUM 7.2 mg/dL (8.5-10.1); CREATININE 3.1 mg/dL (0.6-1.3); MAGNESIUM 2.9 mg/dL (1.8-2.4); PHOSPHORUS 5.6 mg/dL (2.5-4.9); POTASSIUM 3.3 mmol/L (3.5-5.1); TOTAL PROTEIN, SERUM 5.5 g/dL (6.4-8.2)
[2017-07-14] MEDS: LORAZEPAM INJ 2 MG/ML VIAL IV PRN (06:48)
--- NOTE | 2017-07-14 06:53 | NUR ---
FOUNDRY PATTERNMAKER PT HYPERVENTILATING, ATIVAN 1 MG IV GIVEN. CONTINUE TO MONITOR.
--- NOTE | 2017-07-14 06:59 | NUR ---
JUNIOR ELECTRICAL ENGINEER RCD CALL FROM SURGERY REGARDING PTS EGD; NO ORDER FROM MD TO OBTAIN CONSENT FOR PROCEDURE. PT REMAINS ON PRESSORS AT THIS TIME.
[2017-07-14] MEDS ORDERED: LEVOTHYROXINE SODIUM 75 MCG TABLET GT SCH (07:30)
--- NOTE | 2017-07-14 07:51 | NUR ---
WOUND CARE CONSULT: PT GOING FOR STAT CT AT THIS TIME. WILL SEE PT FOR SKIN ASSESSMENT PT CONDITION PERMITS. DISCUSSED SKIN PROTECTION WITH NURSING STAFF. ALL SKIN PROTECTION MEASURES IN PLACE.
--- NOTE | 2017-07-14 08:00 | NUR ---
ICU/RN INITIAL NOTES,AM RECEIVED REPORT FROM NIGHT NURSE. PT OBTUNDED, DOES NOT FOLLOW COMMANDS. PT ON VENT SETTINGS ORDERED BY MD VIA LASHAWN PANIAGUA 6. PT ON TELE, V PACING, PERMANENT PACE MAKER IN LEFT CHEST WALL. KULKARNI CATH IN PLACE, MINIMAL TO NO URINE OUTPUT NOTED. PT CURRENTLY NPO. STAT CT PENDING, WILL TAKE PT WHEN STABLE. POSSIBLE EGD THIS AM, AWAITING FOR GI MD TO DO ROUNDS AND ASSESS PT. OVERNIGHT PT TRANSFUSED WITH ONE UNIT PRBC. GENERALIZED +4 PITTING EDEMA NOTED, ANASARCA WITH WEEPING ARMS AND LOWER EXTREMITIES. PICC LINE PATENT AND INTACT, NO S/S OF INFECTION OR INFILTRATION NOTED. ALL NEEDS WILL BE ATTENDED TO, SAFETY MEASURES TAKEN, BED IN LOW POSITION, SIDE RAILS UP, CALL LIGHT WITHIN REACH. WILL CONTINUE TO MONITOR AND CARE.
--- NOTE | 2017-07-14 08:30 | NUR ---
ICU/RN: PT SEEN AND ASSESSED BY . AT THIS TIME PT IS NOT A GOOD CANDIDATE FOR AN EGD. WILL REASSESS WHEN MORE STABLE. RISKS OUTWEIGH THE BENEFITS. WILL CONTINUE TO MONITOR AND ASSESS
[2017-07-14] MEDS ORDERED: ZINC SULFATE 220 MG CAPSULE GT SCH (09:00)
[2017-07-14] MEDS ORDERED: MULTIVIT, IRON, MIN NO. 8, FA 1 TAB GT SCH (09:00)
[2017-07-14] MEDS ORDERED: ENOXAPARIN SODIUM 40 MG/0.4 ML DISP.SYRIN SQ SCH (09:00)
[2017-07-14] MEDS ORDERED: FUROSEMIDE 40 MG TABLET GT SCH (09:00)
[2017-07-14] MEDS ORDERED: DOCUSATE SODIUM LIQ 100 MG/10 ML UDC GT SCH (09:00)
[2017-07-14] MEDS ORDERED: LEVOFLOXACIN 500 MG /D5W 100ML 100 ML IV ONE ×2 (09:00→13:00)
[2017-07-14] MEDS ORDERED: PROSTAT (PYXIS) 30 ML UDC GT SCH (09:00)
[2017-07-14] MEDS ORDERED: POTASSIUM CL. PREMIX PERIPHER. 50 ML IV SCH (09:00)
[2017-07-14] MEDS ORDERED: ASCORBIC ACID 500 MG TABLET GT SCH (09:00)
[2017-07-14] MEDS ORDERED: AMIODARONE HCL 200 MG TABLET GT SCH (09:00)
[2017-07-14] MEDS ORDERED: ASCORBIC ACID SYRUP 500 MG/5 ML UDC GT SCH (09:00)
--- NOTE | 2017-07-14 09:30 | NUR ---
ICU/RN: TOOK PT FOR STAT CT PELVIS/ABDOMEN. PT BACK IN ROOM. VSS. 4MCG LEVO INFUSING, WILL CONTINUE TO MONITOR AND ASSESS.
[2017-07-14 09:59] LABS: ABG BASE EXCESS -6.1 mmol/L; ABG OXYGEN SATURATION 98.3 % (92.0-98.5); ABG PCO2 27.8 mmHg (35.0-45.0); ABG PH 7.418 (7.350-7.450); ABG PO2 166.7 mmHg (75.0-100.0); AaDO2 86.5 mmHg; COHb 0.2 % (0.5-1.5); MetHb 0.9 % (0.0-1.5); O2Hb 97.2 % (94.0-97.0); SITE, ABG Right Radial; VT, ABG 600 mL
--- NOTE | 2017-07-14 10:00 | NUR ---
ICU/RN: PER FAMILY REQUEST, SET UP A MEETING WITH DR. RAMOS TO DISCUSS PLAN OF CARE AND PROGNOSIS OF PT. AND SISTER OF PATIENT DECIDED TO CHANGE STATUS TO DNR AND TO STOP ALL AGGRESSIVE MEASURES. AFTER THE CHILDREN OF THE PT COME AND VISIT TOMORROW MORNING THE PLAN IS TO WITHDRAW CARE AND SWITCH TO COMFORT MEASURES IN ORDER TO KEEP THE PATIENT MORE COMFORTABLE. PER MD ORDERS WE ARE TO STOP ALL PO/PEG TUBE MEDICATIONS AND FLUIDS. WE WILL CONTINUE VASOPRESSOR LEVO AND PAIN MEDICATIONS NEEDED. WILL CONTINUE TO MONITOR AND ASSESS.
[2017-07-14 10:01] LABS: BAND % (MANUAL) 57 % (0.0-5.0); NEUTROPHILS % (MANUAL) 43 (42-76)
[2017-07-14] MEDS ORDERED: ACETYLCYSTEINE 10% SOLN 400 MG/4 ML VIAL NEB SCH (10:30)
[2017-07-14] MEDS: PANTOPRAZOLE 40 MG VIAL IV SCH ×2 (10:45→17:17)
[2017-07-14] MEDS ORDERED: LEVOFLOXACIN 250 MG /D5W 50 ML 250 MG in PREMIX 1 EA IV SCH (13:00)
[2017-07-14] MEDS: NOREPINEPHRINE 16 MG in IV D5W 500 ML IV PRN ×2 (14:43→18:31)
[2017-07-14] MEDS: MORPHINE SULFATE INJ 2 MG/ML DISP.SYRIN IV PRN (17:17)
--- NOTE | 2017-07-14 19:06 | NUR ---
ICU/RN ENDING NOTES,AM REPORT WILL BE ENDORSED TO NIGHT NURSE FOR CONTINUATION OF CARE. ALL NEEDS MET. PT CONTINUES TO BE ON VENT WITH SETTINGS ORDERED BY MD, NO ACUTE DISTRESS NOTED AT THIS TIME. PT V PACING ON TELE. PER MD WE ARE TO STOP ALL GTUBE MEDS ONLY LEVO FOR BP SUPPORT TILL TOMORROW AM. FAMILY WILL BE HERE AND PT WILL BE TURNED TO COMFORT CARE. ALL NEEDS MET. PT BATHE, TURNED AND REPOSITIONED. PT WEEPING FROM ALL EXTREMITIES DUE TO ANASARCA. SAFETY MEASURES TAKEN. BED IN LOW POSITION, SIDE RAILS UP. KULKARNI IN PLACE, MINIMAL TO NO URINE OUTPUT NOTED, 25 ML ALL SHIFT
--- NOTE | 2017-07-14 20:02 | NUR ---
PELT SHEARER. INITIAL ASSESSMENT. RECEIVED THE PT REST ON THE BED, PT IS OBTUNDED. TRACH TO VENT CONNECTED. SHILEY#6,AC 16,TV 600, FIO2 40%. SAT 99%. OFFICIAL GREETER SHOWING V PACING. IV LT UPPER ARM PICC LINE LEVOPHED 4MCG/KG/MIN. GT INTACT. NPO. UPPER AND LOWER EXTREMITY SWOLLEN 4+. HOB ELEVATED. TURN AND REPOSITION Q2H. PT IS UNSTABLE. WILL CONTINUE TO MONITOR VITALS.
[2017-07-14] MEDS ORDERED: VANCOMYCIN 1 GM in IV D5W 250 ML IV SCH (23:00)
[2017-07-15] VITALS (103 sets, daily range): BP systolic 48–149; BP diastolic 21–100
--- NOTE | 2017-07-15 03:27 | NUR ---
PROGRAM DIRECTOR/MUSIC DIRECTOR. AM CARE. ORAL CARE, BED BATH GIVEN. LINEN CHANGED. REMAINING SAME VENT SETTING TOLERATED WELL. SAT 98%. MINIATURE TRAIN DRIVER SHOWING V PACING. FC PATENT. AFEBRILE. HOB ELEVATED. PRAVIN HAND WEEPING. TURN AND REPOSITION Q2H. WILL WILL CONTINUE TO MONITOR VITALS.
[2017-07-15 04:56] LABS: BASOPHILS # (AUTO) 0.1 /CMM (0.0-0.2); BASOPHILS % (AUTO) 0.3 % (0.0-2.0); EOSINOPHILS # (AUTO) 0.3 /CMM (0.0-0.7); EOSINOPHILS % (AUTO) 1.4 % (0.0-6.0); HEMATOCRIT 29 % (39-51); HEMOGLOBIN 9.5 g/dL (13.5-17.5); LYMPHOCYTES % (AUTO) 9.9 % (20.0-44.0); MEAN CORPUSCULAR HEMOGLOBIN 31 PG (26.0-33.0); MEAN CORPUSCULAR HGB CONC 33 g/dl (31.0-36.0); MEAN CORPUSCULAR VOLUME 92 fL (80-96); MONOCYTES # (AUTO) 0.5 /CMM (0.1-1.30); MONOCYTES % (AUTO) 2.3 % (2.0-12.0); NEUTROPHILS # (AUTO) 17.2 /CMM (1.8-8.9); NEUTROPHILS % (AUTO) 86.1 % (43.0-81.0); PLATELET COUNT (AUTO) 251 /CMM (150-450); RDW COEFFICIENT OF VARIATION 22.7 (11.5-15.0)
[2017-07-15 05:15] LABS: ALBUMIN 2.5 g/dL (3.4-5.0); BILIRUBIN,TOTAL 1.5 mg/dL (0.2-1.0); CALCIUM, SERUM 7.9 mg/dL (8.5-10.1); CREATININE 3.6 mg/dL (0.6-1.3); PHOSPHORUS 6.2 mg/dL (2.5-4.9); POTASSIUM 3.7 mmol/L (3.5-5.1); TOTAL PROTEIN, SERUM 5.7 g/dL (6.4-8.2)
[2017-07-15] MEDS: MORPHINE SULFATE INJ 2 MG/ML DISP.SYRIN IV PRN ×2 (05:27→17:55)
[2017-07-15 06:29] LABS: BAND % (MANUAL) 1 % (0.0-5.0); EOSINOPHILS % (MANUAL) 1 % (0-4); LYMPHOCYTES % (MANUAL) 13 % (16-48); MONOCYTES % (MANUAL) 6 % (0-11.0); NEUTROPHILS % (MANUAL) 79 (42-76)
--- NOTE | 2017-07-15 07:26 | NUR ---
PT REC'D ON VENT VIA [employer] #[id number]. VENT SETTINGS PER MD. PT LOOKS COMFORTABLE, RESTING, NO SOB NOTED. SX'D SCANT AMT OF THICK YELLOW SECRETIONS. VENT PLUGGED INTO RED OUTLET. AMBU BAG AT HOB. VENT ALARMS SET AND AUDIBLE PER POLICY. Addendum: 07/15/17 at 0732 by MAURIZIO BEY RT Amended: Links added.
--- NOTE | 2017-07-15 08:11 | NUR ---
INITIAL MIXING PLANT OPERATOR NOTE RCVD PT WITH EYES OPEN, UNABLE TO FOLLOW COMMANDS OR COMMUNICATE IN ANY MANNER. VPACING ON BEDSIDE MONITOR. TOLERATING ORDERED VENT SETTINGS. KULKARNI DRAINING CLOUDY, YELLOW URINE. G-TUBE CLAMPED. PLACEMENT VERIFIEDF BY AUSCULTATION/ASPIRATION. 90ML OF GREEN GASTRIC FLUID OBSERVED. JEAN PAUL PICC LINE IN PLACE C/D/I/PATENT. NO S/O INFILTRATION/PHLEBITIS OBSERVED. ON VASOPRESSORS WILL CONTINUE TO MONITOR FOR SAFETY AND COMFORT. CALL LIGHT WITHIN REACH. BED IN LOW AND LOCKED POSITION. DR. RAMOS IN UNIT INFORMED RN THAT PT'S FAMILY WILL MAKE DECISION REGARDING COMFORT CARE TODAY. AT THIS TIME NO PO/GT MEDS OR BLOOD DRAWS OF ANY KIND.
[2017-07-15] MEDS ORDERED: LEVOFLOXACIN 250 MG /D5W 50 ML 250 MG in PREMIX 1 EA IV SCH (09:00)
[2017-07-15] MEDS: PANTOPRAZOLE 40 MG VIAL IV SCH ×2 (09:06→17:26)
--- NOTE | 2017-07-15 10:47 | NUR ---
INKER AND OPAQUER NOTE PT'S SISTER, BRIANNA AT BEDSIDE UPDATED ON PT'S CONDITION. STATES THAT FAMILY DISCUSSED PT'S PLAN OF CARE AND DECIDED COMFORT MEASURES. WAITING FOR PT'S TO COME IN AND MAKE OFFICIAL REQUEST TO OBTAIN ORDER AND IMPLEMENT COMFORT CARE.
--- NOTE | 2017-07-15 12:33 | NUR ---
BOILERMAKER SHIP NOTE PT'S , GRANDCHILDREN AT BEDSIDE. RN INTRODUCE SELF TO PT'S FAMILY MEMBERS LETTING THEM KNOW THAT I COULD ANSWER ANY QUESTIONS THEY MIGHT HAVE REGARDING PT'S CONDITION. NO QUESTIONS OR UPDATES ON PT'S CONDITION WERE REQUESTED.
--- NOTE | 2017-07-15 14:26 | NUR ---
ALARM INVESTIGATOR NOTE RN CALLED PT'S LASHELL WHO STATES THAT SHE'S NOT READY TO MAKE DECISION REGARDING COMFORT CARE AT THIS TIME BECAUSE SHE SEES PT OPENING EYES. I ASKED HER IF SHE WOULD LIKE TO SPEAK WITH DR. RAMOS ABOUT PT'S CARE SHE SAID YES. DR. RAMOS INFORMED AND GIVEN LASHELL'S CELL PHONE TO DISCUSS PT'S PLAN OF CARE. DR. RAMOS SPOKE WITH LASHELL AND AGREED TO CONTINUE NON-INVASIVE CARE, INCLUDING NO ABX PER LASHELL'S REQUEST.
[2017-07-15] MEDS: NOREPINEPHRINE 16 MG in IV D5W 500 ML IV PRN (17:28)
--- NOTE | 2017-07-15 18:18 | NUR ---
DOG TRAINER NOTE PT REMAINS ON PRESSORS, V-PACING ON TELE. TOLERATING ORDERED VENT SETTINGS. GENERALIZED EDEMA PRESENT. KULKARNI TO GRAVITY DRAINING YELLOW URINE. G-TUBE CLAMPED. JEAN PAUL PICC C/D/I. NO S/O INFILTRATION/PHLEBITIS OBSERVED PRESSORS INFUSING. PT'S CARE WILL BE ENDORSED TO DOUGH MAKER RN FOR CONTINUITY OF CARE. NANCY PARR INFORMED OF DR. RAMOS'S CONVERSATION WITH PT'S REGARDING HOLDING OFF ON COMFORT MEASURES AT THIS TIME.
--- NOTE | 2017-07-15 18:41 | NUR ---
FARM LOAN INSPECTOR NOTE PT BECAME TACHYCARDIC, TACHYPNEIC MORPHINE AND ATIVAN GIVE WITHIN THE PAST HOUR. PT'S CARE WILL BE ENDORSED TO FISHING ROD TRIMMER RN.
[2017-07-15] MEDS: LORAZEPAM INJ 2 MG/ML VIAL IV PRN (18:58)
--- NOTE | 2017-07-15 21:00 | NUR ---
DETECTIVE CAPTAIN - REC'D REPORT FROM YOSELYN RN. REC'D PT.TRACH/VENT-AC-16,40% & TH=992. PEG IS CLAMPED. NONVERBAL-NOT ALERT, EYES BARELY OPEN TO TACTILE STIMULUS. HEART MONITOR SHOWS V-PACING W/UNDERLYING AFIB. KULKARNI CATH TO GRAVITY W/MINIMAL UOP. FEVER IN THE 'S. ANASARCA TO ENTIRE BODY. BUE'S (LEFT MORE THAN RT.) IS SEEPING SEROUS FLUID=COPIOUS AMTS. PT.IS IN ISOLATION FOR MRSA/NARES. LUE PICC LINE TL HAS ALL PORTS PATENT TO FLUSH. LEVOPHED INFUSING AT 2 MCG/MIN. NO SKIN BREAKDOWN, EXCEPT FOR A BACK SCRAPE, SCROTAL/SACRAL REDNESS. CONT. POC.
[2017-07-16] VITALS (103 sets, daily range): BP systolic 67–142; BP diastolic 31–78
--- NOTE | 2017-07-16 02:00 | NUR ---
MATERIALS PLANNER - LEVOPHED GTT. HAS BEEN TITRATED UP & DOWN. SBP'S ARE VERY LABILE. GTT. OFF AT 01:00 AM. AT 01:45, LEVOPHED GTT. HAD TO BE PUT BACK ON DUE TO SBP'S IN THE 70'S-80'S. NO CHANGES FROM INITIAL ASSESSMENT. CONT. POC.
--- NOTE | 2017-07-16 06:00 | NUR ---
WAREHOUSE DELIVERY DRIVER - COMPLETE BEDBATH DONE W/ORAL,TRACH,PEG,SKIN-WOUND & CAESAR CARE ADM. LEVOPHED GTT. AT 2 MCG/MIN. CONT. POC. NO LABS, NO PO/GT MEDS, NO PCXR'S ARE TO BE DONE. POSSIBLE FAMILY CONFERENCE THIS AM TO DECIDE COMFORT MEASURES OR CONT. W/STATUS QUO.
--- NOTE | 2017-07-16 07:30 | NUR ---
UNIT TENDER - VERBAL REPORT ENDORSED TO BRAYAN RN. CONT. POC.
--- NOTE | 2017-07-16 08:00 | NUR ---
ICU/RN INITIAL NOTES,AM RECEIVED REPORT FROM NIGHT NURSE. PT OBTUNDED, DOES NOT FOLLOW COMMANDS. PT ON VENT SETTINGS ORDERED BY MD VIA LASHAWN PANIAGUA 6. PT ON TELE, V PACING, PERMANENT PACE MAKER IN LEFT CHEST WALL. KULKARNI CATH IN PLACE, URINE OUTPUT NOTED. PT CURRENTLY NPO. GENERALIZED +4 PITTING EDEMA NOTED, ANASARCA WITH WEEPING ARMS AND LOWER EXTREMITIES. PICC LINE PATENT AND INTACT, NO S/S OF INFECTION OR INFILTRATION NOTED. ALL NEEDS WILL BE ATTENDED TO, SAFETY MEASURES TAKEN, BED IN LOW POSITION, SIDE RAILS UP, CALL LIGHT WITHIN REACH. WILL CONTINUE TO MONITOR AND CARE. AWAITING FOR . PER NIGHT NURSE LASHELL WANTS TO MAKE PATIENT COMFORT CARE TODAY AND WITHDRAW ALL LIFE SUPPORTING MEASURES. PER MD ORDERS AND FAMILY REQUEST ALL PO MEDS AND FLUIDS ARE STOPPED EXCEPT LEVOPHED.
[2017-07-16] MEDS: PANTOPRAZOLE 40 MG VIAL IV SCH ×2 (08:59→17:26)
--- NOTE | 2017-07-16 12:30 | NUR ---
ICU/RN: OF PT LASHELL AT BEDSIDE. TELLS ME SHE IS NOT READY TODAY TO GO TO COMFORT CARE. INFORMED PT SHE CAN TELL US WHEN SHE IS READY. HOWEVER, SHE DID TELL US TO CONTINUE WITH WHAT WE ARE DOING. PER WE ARE CONTINUING VASO PRESSORS AND VENT SUPPORT.
[2017-07-16] MEDS: NOREPINEPHRINE 16 MG in IV D5W 500 ML IV PRN (18:26)
--- NOTE | 2017-07-16 18:36 | NUR ---
ICU/ENDING NOTES,AM REPORT WILL BE ENDORSED TO NIGHT NURSE FOR CONTINUATION OF CARE. ALL NEEDS ATTENDED TO. STILL DECIDING WHEN TO DO COMFORT CARE. PT ON LOW DOSE LEVO FOR BP SUPPORT. ON VENT SETTINGS ORDERED BY MD. PT BATHE, TURNED AND REPOSITIONED. RECTAL TUBE PLACED DUE TO LOOSE STOOL, MD ORDERS. SAFETY MEASURES TAKEN, BED IN LOW POSITION, SIDE RAILS UP, CALL LIGHT WITHIN REACH
--- NOTE | 2017-07-16 20:00 | NUR ---
Received patient obtunded.No apparent distress noted.Continued on same prescribed vent settings. Well tolerated saturation 100%.V-paced with BBB.On low dose of Levophed for BP support and will titrate accordingly.GT clamped.Abdomen distended.Flexi seal in place no bm noted at this time.FC with cloudy urine.Generalized anasarca both arms weeping.Kept clean and dry.Turned and repositioned. Continue monitoring.
[2017-07-16] MEDS: MORPHINE SULFATE INJ 2 MG/ML DISP.SYRIN IV PRN (22:45)
--- NOTE | 2017-07-16 22:45 | NUR ---
Patient tachypneic RR 40-42 and grimacing.Secretions suctioned.PRN Morphine given for pain.Will reassessed.
[2017-07-17] VITALS (68 sets, daily range): BP systolic 75–163; BP diastolic 31–72
--- NOTE | 2017-07-17 | NUR ---
Patient resting.Afebrile.Hemodynamically unstable with Levophed drip titrated accordingly.No s/s of pain noted.
--- NOTE | 2017-07-17 06:00 | NUR ---
Patient resting.VS stable.JEAN PAUL PICC Line dressing changed under aseptic technique.Site healthy no signs of infection noted.Oral care and trach site care done.Bathed and complete linens changed.Turned and repositioned.Levophed drip infusing at 5 mcg.All needs attended.
[2017-07-17 07:38] LABS: BASOPHILS % (AUTO) 0.1 % (0.0-2.0); EOSINOPHILS # (AUTO) 0.2 /CMM (0.0-0.7); HEMATOCRIT 29 % (39-51); HEMOGLOBIN 9.6 g/dL (13.5-17.5); LYMPHOCYTES # (AUTO) 2.6 /CMM (0.8-4.8); LYMPHOCYTES % (AUTO) 13.7 % (20.0-44.0); MEAN CORPUSCULAR HEMOGLOBIN 31 PG (26.0-33.0); MEAN CORPUSCULAR HGB CONC 33 g/dl (31.0-36.0); MEAN CORPUSCULAR VOLUME 94 fL (80-96); MONOCYTES # (AUTO) 0.7 /CMM (0.1-1.30); MONOCYTES % (AUTO) 3.8 % (2.0-12.0); NEUTROPHILS # (AUTO) 15.3 /CMM (1.8-8.9); NEUTROPHILS % (AUTO) 81.4 % (43.0-81.0); PLATELET COUNT (AUTO) 178 /CMM (150-450); RDW COEFFICIENT OF VARIATION 21.8 (11.5-15.0); RED BLOOD CELL COUNT(AUTO) 3.09 MIL/uL (4.5-6.0); WHITE BLOOD COUNT (AUTO) 18.8 K/uL (4.3-11.0)
[2017-07-17 07:50] LABS: CALCIUM, SERUM 7.8 mg/dL (8.5-10.1); CREATININE 3.4 mg/dL (0.6-1.3)
--- NOTE | 2017-07-17 08:00 | NUR ---
ICU/RN: Pt noted with facial grimacing, tachypnea in 30's and restlessness of BUE. Pt responds to tactile stimuli. Airway suctioned with thick white secretions noted. JEAN PAUL PICC flushed, patent with good blood return, Levophed infusing with SBP in desired range. FC draining cloudy yellow urine to gravity. Flexiseal draining to gravity. HOB elevated per aspiration precautions. Turned and repositioned. Will administer prn Ativan as ordered for pt comfort.
[2017-07-17 08:03] LABS: POTASSIUM 2.8 mmol/L (3.5-5.1)
[2017-07-17] MEDS: LORAZEPAM INJ 2 MG/ML VIAL IV PRN (08:41)
[2017-07-17] MEDS: PANTOPRAZOLE 40 MG VIAL IV SCH ×2 (08:41→16:27)
[2017-07-17 09:16] LABS: *SPE A/G RATIO 1.1 (0.7-1.7); *SPE ALBUMIN 2.8 g/dL (2.9-4.4); *SPE ALPHA-1-GLOBULIN 0.4 g/dL (0.0-0.4); *SPE ALPHA-2-GLOBULIN 0.8 g/dL (0.4-1.0); *SPE BETA GLOBULIN 0.6 g/dL (0.7-1.3); *SPE GLOBULIN, TOTAL 2.6 g/dL (2.2-3.9); *SPE M-SPIKE Not Observed g/dL (Not Observed); *SPE PROTEIN TOTAL 5.4 g/dL (6.0-8.5); *SPEGAMMA GLOBULIN 0.8 g/dL (0.4-1.8)
[2017-07-17] MEDS: POTASSIUM CL. PREMIX PERIPHER. 50 ML IV SCH ×6 (09:43→15:44)
--- NOTE | 2017-07-17 12:25 | NUR ---
ICU/RN: Yaneth Mast PRODUCT DEVELOPMENT ECOLOGIST in for ID consult. Pt remains off ABX per request. PRODUCT DEVELOPMENT ECOLOGIST to speak with Dr. Urena regarding POC, still undecided as to POC and comfort care for the pt. PRODUCT DEVELOPMENT ECOLOGIST currently discussing POC with .
[2017-07-17] MEDS ORDERED: VANCOMYCIN 1 GM in IV D5W 250 ML IV ONE (12:30)
[2017-07-17] MEDS: MUPIROCIN OINT 2% 22 GM TUBE SCH ×2 (13:10→20:16)
--- NOTE | 2017-07-17 13:38 | NUR ---
ICU/RN: Called Rx regarding Merrem and Vancomycin dose. Awaiting delivery. IV Potassium currently infusing.
[2017-07-17] MEDS: MEROPENEM 500 MG in IV NS 0.9% 50 ML IV SCH (14:07)
--- NOTE | 2017-07-17 14:30 | NUR ---
ICU/RN: Wound care rendered. Pt noted with blanching redness on sacrum, perineal redness. Weeping edema noted on bilat upper and lower extremities. Bed bath rendered. Skin protection measures in place. Will cont to monitor pt
--- NOTE | 2017-07-17 15:30 | NUR ---
ICU/RN: Pt's Marie at the bedside. Updated on pt status. agreeable with antibiotic treatment to see if pt condition will improve within next few days as discussed with ARABELLA Mast. Per DIRECTOR OF MEDICAL EDUCATION, "I'll update Dr Urena on his condition."
[2017-07-17] MEDS: NOREPINEPHRINE 16 MG in IV D5W 500 ML IV PRN (16:27)
--- NOTE | 2017-07-17 19:03 | NUR ---
ICU/RN: Levophed titrated per protocol. Unable to collect respiratory and stool culture d/t minimal output and secretions. Bedside report given to NAZARIO Vang for ELO.
--- NOTE | 2017-07-17 19:30 | NUR ---
RN INITIAL NOTES RECEIVED PT ASLEEP ON BED, EASILY AROUSABLE TO NAME AND TOUCH. NON-VERBAL, OPENS EYES ONLY, UNABLE TO FOLLOW SIMPLE COMMANDS. ON VENT WITH SETTINGS AC 16, 40% FIO2, TV 600, 0 PEEP, SHILEY 6, SATURATING WELL, NO S/S OF RESP DISTRESS. CURRENTLY VPACING ON THE MONITOR, HR 60'S. ON 6MCG/MIN OF LEVOPHED DRIP. PEG IS CLAMPED. KULKARNI CATH AND FLEXISEAL ARE NOTED. LEFT UPPER ARM 3LUMEN PICC FLUSHED AND PATENT, NO S/S OF INFILTRATION/INFECTION, DRESSING CDI. BED LOW AND LOCKED, SIDERAILS UP, BED ALARM ON. WILL MONITOR
--- NOTE | 2017-07-17 20:58 | NUR ---
PT RECEIVED TRACHED ON VENT. NO RESP DISTRESS NOTED. PT TOLERATING VENT SETTINGS. SX'D FOR SML AMT OF THICK YELLOW SECRETIONS. VENT ALARMS SET AND AUDIBLE. VENT PLUGGED INTO RED OUTLET. WILL CONTINUE TO MONITOR. Addendum: 07/17/17 at 2058 by ARACELIS HERNANDEZ RT Amended: Links added.
[2017-07-18] VITALS (49 sets, daily range): BP systolic 92–160; BP diastolic 35–76
[2017-07-18] MEDS: MEROPENEM 500 MG in IV NS 0.9% 50 ML IV SCH ×3 (00:07→23:27)
[2017-07-18 05:00] LABS: CALCIUM, SERUM 7.5 mg/dL (8.5-10.1); CREATININE 3.2 mg/dL (0.6-1.3); POTASSIUM 3.1 mmol/L (3.5-5.1)
--- NOTE | 2017-07-18 06:30 | NUR ---
RN CLOSING NOTES PT REMAINS STABLE OF THE MOMENT. ALL DUE MEDS GIVEN, AM CARE PROVIDED. LEVO DRIP STOPPED @ 0000, SBP AND MAP MAINTAINED WNL. WILL ENDORSE CONTINUITY OF CARE TO AM RN
--- NOTE | 2017-07-18 08:00 | NUR ---
ICU/RN PT IS CHRONIC TRACH ON THE VENT AC MODE.FIO2-40%.SAT O2-100%.PT IS OFF LEVOPHED.BP STABLE.AFEBRILE.NO PAIN REPORTED AT THIS TIME.PT IS OPEN HIS EYES,RESPONSIVE ON PAIN STIMULATION.G-TUBE CLAMPED.PT IS NPO.F/C DRAINING WITH SANDRO URINE.RECTAL TUBE DRAINING WITH LIQUID STOOL.GENERALIZED WEEPING EDEMA PRESENT.MULTIPLY BRUISES AND SKIN TEARS NOTED ALL OVER THE BODY.PT HAS BRUISE AROUND THE NECK AREA..SUCTION PROVIDED,YELLOW THICK SECRETION NOTED.REPOSITION FOR COMFORT.
--- NOTE | 2017-07-18 08:03 | NUR ---
WOUND CARE CONSULT PATIENT SEEN AND SKIN INTEGRITY EVALUATION DONE. PLEASE SEE INSIGHT LEADER ASSESSMENT IN PCS FOR TODAY. PATIENT PRESENTS WITH PURPLE IRREGULAR SHAPED DISCOLORATIONS TO THE LEFT AND RIGHT NECK AREAS PER NURSING DOCUMENTATION POA. RECOMMEND PROTECT WITH MEPILEX UNDER TRACH TIES. PATIENT NOTED TO HAVE MULTIPLE CO-MORBIDITIES, SEVERE SWELLING 3+ PITTING WEEPING EDEMA TOTAL BODY. PATIENT FOR POSSIBLE COMFORT CARE PER NOTES AND NURSING STAFF. ALL PRESSURE ULCER PREVENTION MEASURES NOTED TO BE IN PLACE. FURTHER SKIN BREAKDOWN MAY BE UNAVOIDABLE DUE TO PATIENT MULTIPLE CO-MORBIDITIES. CURRENT ROE AT 9. 1ST STEP LOW AIRLOSS MATTRESS IN USE, Z GUARD RE-ORDERED FOR SKIN/MOISTURE MANAGEMENT. WILL SEE PRN. ALL DISCUSSED WITH NURSING STAFF AT BEDSIDE. Addendum: 07/18/17 at 0809 by ROSA KOO WNDNU Amended: Links added.
[2017-07-18] MEDS: PANTOPRAZOLE 40 MG VIAL IV SCH ×2 (08:44→16:35)
[2017-07-18] MEDS: Z GUARD REMEDY 2 OZ OINT TP PRN (08:44)
[2017-07-18] MEDS: MUPIROCIN OINT 2% 22 GM TUBE SCH ×2 (08:45→21:45)
--- NOTE | 2017-07-18 12:00 | NUR ---
ICU/RN DR DIAZ TALK TO THE FAMILY.FAMILY WOULD LIKE TO CONTINUE OF CARE.PT IS DNR,BUT OK TO GIVE ALL MEDS.NEW ORDERS RECEIVED.DUE MEDS ARE GIVEN ORDERED.PT IS NPO.F/C DRAINING WITH SANDRO URINE . PT IS AWAKE ,RESPONDING ON TOUCH STIMULATION, MOVING IN THE BED.
[2017-07-18 13:11] LABS: PTH, INTACT 114 pg/mL (15-65)
[2017-07-18 13:17] LABS: ALBUMIN 1.9 g/dL (3.4-5.0); BILIRUBIN,DIRECT 2.5 mg/dL (0.0-0.2); BILIRUBIN,TOTAL 3.3 mg/dL (0.2-1.0)
[2017-07-18 13:28] LABS: BASOPHILS % (AUTO) 0.1 % (0.0-2.0); EOSINOPHILS # (AUTO) 0.2 /CMM (0.0-0.7); EOSINOPHILS % (AUTO) 0.8 % (0.0-6.0); HEMATOCRIT 28 % (39-51); HEMOGLOBIN 9.1 g/dL (13.5-17.5); LYMPHOCYTES % (AUTO) 10.2 % (20.0-44.0); MEAN CORPUSCULAR HEMOGLOBIN 31 PG (26.0-33.0); MEAN CORPUSCULAR HGB CONC 32 g/dl (31.0-36.0); MEAN CORPUSCULAR VOLUME 97 fL (80-96); MONOCYTES # (AUTO) 0.5 /CMM (0.1-1.30); MONOCYTES % (AUTO) 2.6 % (2.0-12.0); NEUTROPHILS # (AUTO) 16.7 /CMM (1.8-8.9); NEUTROPHILS % (AUTO) 86.3 % (43.0-81.0); PLATELET COUNT (AUTO) 155 /CMM (150-450); RDW COEFFICIENT OF VARIATION 22.9 (11.5-15.0); RED BLOOD CELL COUNT(AUTO) 2.89 MIL/uL (4.5-6.0); WHITE BLOOD COUNT (AUTO) 19.3 K/uL (4.3-11.0)
[2017-07-18] MEDS ORDERED: POTASSIUM CL. PREMIX PERIPHER. 50 ML IV SCH (14:00)
[2017-07-18 14:08] LABS: LYMPHOCYTES % (MANUAL) 10 % (16-48); MONOCYTES % (MANUAL) 4 % (0-11.0)
[2017-07-18] MEDS ORDERED: VANCOMYCIN 1 GM in IV D5W 250 ML IV SCH (15:00)
[2017-07-18 16:33] LABS: NEUTROPHILS % (MANUAL) 86 (42-76)
[2017-07-18] MEDS: VANCOMYCIN 1 GM in IV D5W 250 ML IV SCH (16:33)
--- NOTE | 2017-07-18 17:00 | NUR ---
ICU/RN PM CARE PROVIDED.DUE MEDS ARE GIVEN ORDERED.V/S STABLE ,AFEBRILE.NO PAIN REPORTED AT THIS TIME.SUCTION PROVIDED.REPOSITION FOR COMFORT.
--- NOTE | 2017-07-18 19:30 | NUR ---
RN INITIAL NOTES RECEIVED PT ASLEEP ON BED, EASILY AROUSABLE TO NAME AND TOUCH. NON-VERBAL, OPENS EYES ONLY, UNABLE TO FOLLOW SIMPLE COMMANDS. ON VENT WITH SETTINGS AC 16, 40% FIO2, TV 600, 0 PEEP, SHILEY 6, SATURATING WELL, NO S/S OF RESP DISTRESS. CURRENTLY VPACING ON THE MONITOR, HR 60'S. PEG IS CLAMPED. KULKARNI CATH AND FLEXISEAL ARE NOTED. LEFT UPPER ARM 3LUMEN PICC FLUSHED AND PATENT, NO S/S OF INFILTRATION/INFECTION, DRESSING CDI. BED LOW AND LOCKED, SIDERAILS UP, BED ALARM ON. WILL MONITOR
[2017-07-18] MEDS ORDERED: MUPIROCIN OINT 2% 22 GM TUBE SCH (21:00)
[2017-07-18] MEDS: LORAZEPAM INJ 2 MG/ML VIAL IV PRN (22:53)
[2017-07-19] VITALS (39 sets, daily range): BP systolic 99–145; BP diastolic 35–72
[2017-07-19 04:46] LABS: BASOPHILS % (AUTO) 0.2 % (0.0-2.0); EOSINOPHILS # (AUTO) 0.2 /CMM (0.0-0.7); EOSINOPHILS % (AUTO) 0.9 % (0.0-6.0); HEMATOCRIT 27 % (39-51); HEMOGLOBIN 8.7 g/dL (13.5-17.5); LYMPHOCYTES # (AUTO) 1.5 /CMM (0.8-4.8); LYMPHOCYTES % (AUTO) 9.3 % (20.0-44.0); MEAN CORPUSCULAR HEMOGLOBIN 31 PG (26.0-33.0); MEAN CORPUSCULAR HGB CONC 32 g/dl (31.0-36.0); MEAN CORPUSCULAR VOLUME 96 fL (80-96); MONOCYTES # (AUTO) 0.1 /CMM (0.1-1.30); MONOCYTES % (AUTO) 0.7 % (2.0-12.0); NEUTROPHILS # (AUTO) 14.9 /CMM (1.8-8.9); NEUTROPHILS % (AUTO) 88.9 % (43.0-81.0); PLATELET COUNT (AUTO) 128 /CMM (150-450); RDW COEFFICIENT OF VARIATION 22.6 (11.5-15.0); RED BLOOD CELL COUNT(AUTO) 2.81 MIL/uL (4.5-6.0); WHITE BLOOD COUNT (AUTO) 16.7 K/uL (4.3-11.0)
[2017-07-19 04:57] LABS: ALBUMIN 1.7 g/dL (3.4-5.0); BILIRUBIN,DIRECT 2.5 mg/dL (0.0-0.2); BILIRUBIN,TOTAL 3.3 mg/dL (0.2-1.0); CALCIUM, SERUM 7.8 mg/dL (8.5-10.1); CREATININE 2.6 mg/dL (0.6-1.3); MAGNESIUM 2.5 mg/dL (1.8-2.4); PHOSPHORUS 4.5 mg/dL (2.5-4.9); TOTAL PROTEIN, SERUM 4.6 g/dL (6.4-8.2)
[2017-07-19 06:03] LABS: BAND % (MANUAL) 13 % (0.0-5.0); LYMPHOCYTES % (MANUAL) 7 % (16-48); METAMYELOCYTES % 2 % (0-0); MONOCYTES % (MANUAL) 1 % (0-11.0); NEUTROPHILS % (MANUAL) 76 (42-76); REACTIVE LYMPHOCYTES 1 % (0-0)
--- NOTE | 2017-07-19 06:30 | NUR ---
RN CLOSING NOTES PT REMAINS STABLE OF THE MOMENT. ALL DUE MEDS GIVEN, AM CARE PROVIDED. WILL ENDORSE ELO TO AM RN
--- NOTE | 2017-07-19 07:49 | NUR ---
RT PATIENT REC'D TRACHED ON [facility] VENT WITH SETTINGS SET PER MD GOMEZ SIFUENTES. VENT ALARMS CHECKED + AUDIBLE. PATIENT NON RESPONSIVE AND IN NO DISTRESS AT THIS TIME. SX'D WITH DANA MORENO [employer]CR[employer]. AMBU BAG AT HOB Addendum: 07/19/17 at 1203 by MEGAN ZAFAR RT Amended: Links added.
--- NOTE | 2017-07-19 08:00 | NUR ---
pt opens eyes to verbal stimuli. responds appropriately to simple commands in Mexican. vss, off pressors, denies pain.
[2017-07-19] MEDS ORDERED: IV 1/2NS 1000 ML 1,000 ML IV PRN (08:30)
[2017-07-19] MEDS: PANTOPRAZOLE 40 MG VIAL IV SCH ×2 (09:38→17:30)
[2017-07-19] MEDS: LEVOTHYROXINE SODIUM 75 MCG TABLET PO SCH (09:38)
[2017-07-19] MEDS: POTASSIUM CL. PREMIX PERIPHER. 50 ML IV SCH ×4 (09:39→12:32)
[2017-07-19] MEDS: MUPIROCIN OINT 2% 22 GM TUBE SCH ×2 (09:51→21:04)
--- NOTE | 2017-07-19 10:00 | NUR ---
Pt npo and no ivf for mult days, discussed with Dr Crocker. ok to start on [facility] renal at 30 ml/hr and d51/2 ns at 50mn/hr.
[2017-07-19] MEDS: IV D5/0.45 NACL 1,000 ML IV PRN (10:38)
[2017-07-19] MEDS: MEROPENEM 500 MG in IV NS 0.9% 50 ML IV SCH ×2 (11:26→23:11)
[2017-07-19] MEDS: VANCOMYCIN 1 GM in IV D5W 250 ML IV SCH (11:26)
[2017-07-19] MEDS: RENAL NOVASOURCE 1,000 ML BOTTLE GT PRN (12:57)
--- NOTE | 2017-07-19 14:00 | NUR ---
k 3.0 potassium replaced as ordered. family at bedside updated on progress.
--- NOTE | 2017-07-19 20:26 | NUR ---
received pt from day shift, lethargic, follows commands at times, confused, disoriented, V pacing, BBB, on the vent, lungs congested, pitting edema throughout, weeping edema, GT to feeding tolerates well, f/c good output, rectal tube in diarrhea, v/s stable, no pain, pt turned and repositioned.
[2017-07-20] VITALS (37 sets, daily range): BP systolic 97–160; BP diastolic 42–70
--- NOTE | 2017-07-20 00:29 | NUR ---
pt is resting in the bed, v/s stable, no pain, pt turned and repositioned q2hrs.
[2017-07-20] MEDS: VANCOMYCIN 1 GM in IV D5W 250 ML IV SCH (04:38)
--- NOTE | 2017-07-20 04:44 | NUR ---
pt is resting in the bed, no acute distress overnight, v/s stable, no pain, pt cleaned, changed and repositioned q2hrs.
[2017-07-20 05:11] LABS: BASOPHILS % (AUTO) 0.2 % (0.0-2.0); EOSINOPHILS # (AUTO) 0.1 /CMM (0.0-0.7); EOSINOPHILS % (AUTO) 0.8 % (0.0-6.0); HEMATOCRIT 27 % (39-51); HEMOGLOBIN 8.9 g/dL (13.5-17.5); LYMPHOCYTES # (AUTO) 2.1 /CMM (0.8-4.8); MEAN CORPUSCULAR HEMOGLOBIN 32 PG (26.0-33.0); MEAN CORPUSCULAR HGB CONC 33 g/dl (31.0-36.0); MEAN CORPUSCULAR VOLUME 98 fL (80-96); MONOCYTES # (AUTO) 0.4 /CMM (0.1-1.30); MONOCYTES % (AUTO) 2.3 % (2.0-12.0); NEUTROPHILS # (AUTO) 13.8 /CMM (1.8-8.9); NEUTROPHILS % (AUTO) 83.7 % (43.0-81.0); PLATELET COUNT (AUTO) 130 /CMM (150-450); RDW COEFFICIENT OF VARIATION 23.4 (11.5-15.0); RED BLOOD CELL COUNT(AUTO) 2.75 MIL/uL (4.5-6.0); WHITE BLOOD COUNT (AUTO) 16.5 K/uL (4.3-11.0)
[2017-07-20 05:37] LABS: ALBUMIN 1.7 g/dL (3.4-5.0); BILIRUBIN,DIRECT 2.4 mg/dL (0.0-0.2); BILIRUBIN,TOTAL 3.1 mg/dL (0.2-1.0); CALCIUM, SERUM 7.6 mg/dL (8.5-10.1); CREATININE 2.2 mg/dL (0.6-1.3); MAGNESIUM 2.1 mg/dL (1.8-2.4); PHOSPHORUS 3.3 mg/dL (2.5-4.9); TOTAL PROTEIN, SERUM 4.9 g/dL (6.4-8.2)
[2017-07-20 05:51] LABS: POTASSIUM 2.6 mmol/L (3.5-5.1)
[2017-07-20] MEDS ORDERED: POTASSIUM CL. PREMIX PERIPHER. 50 ML ONE (06:19)
[2017-07-20] MEDS ORDERED: POTASSIUM CHLORIDE 20 MEQ POWDER PACKET ONE (06:20)
[2017-07-20] MEDS: POTASSIUM CL. PREMIX PERIPHER. 50 ML IV SCH ×4 (06:24→09:59)
[2017-07-20] MEDS ORDERED: POTASSIUM CHLORIDE 20 MEQ POWDER PACKET GT SCH (06:30)
[2017-07-20] MEDS: LEVOTHYROXINE SODIUM 75 MCG TABLET PO SCH (07:43)
--- NOTE | 2017-07-20 08:00 | NUR ---
ICU/RN PT IS ON THE VENT ,CHRONIC TRACH.FIO2-40%.SAT O2-100%.V/S STABLE,AFEBRILE.NO PAIN REPORTED AT THIS TIME.G-TUBE INFUSING WITH RENAL NOVASOURCE, 50 ML OF RESIDUAL NOTED.F/C DRAINING WITH YELLOW URINE.PT HAS RECTAL TUBE.GENERALIZED WEEPING EDEMA PRESENT.LABS REVIEW. NOTIFIED.NEW ORDERERS RECEIVED.
[2017-07-20] MEDS: PANTOPRAZOLE 40 MG VIAL IV SCH ×2 (09:58→16:22)
[2017-07-20] MEDS: MUPIROCIN OINT 2% 22 GM TUBE SCH ×2 (09:58→21:00)
[2017-07-20] MEDS: MEROPENEM 500 MG in IV NS 0.9% 50 ML IV SCH ×2 (11:38→23:30)
[2017-07-20] MEDS: IV D5/0.45 NACL 1,000 ML IV PRN (11:45)
[2017-07-20] MEDS ORDERED: IV D5W 1,000 ML IV ONE (13:00)
[2017-07-20] MEDS ORDERED: DEXTROSE 50%-WATER 50 ML DISP.SYRIN IV PRN (13:00)
--- NOTE | 2017-07-20 13:00 | NUR ---
ICU/RN 40 MEQ IV KCL GIVEN ORDERED. FAMILY AT BEDSIDE.
[2017-07-20] MEDS: BLOOD SUGAR DIAGNOSTIC 1 EACH STRIP IN SCH ×2 (17:02→23:40)
[2017-07-20] MEDS: RENAL NOVASOURCE 1,000 ML BOTTLE GT PRN (17:02)
--- NOTE | 2017-07-20 18:00 | NUR ---
ICU/RN PM CARE PROVIDED.DUE MEDS ARE GIVEN ORDERED.BS-183. RECTAL TUBE REMOVED PT HAS GREEN SOFT STOOL.WOUND DRESSING DONE ORDERED,SUCTION PROVIDED.REPOSITION FOR COMFORT.
[2017-07-20] MEDS: METOCLOPRAMIDE HCL 10 MG/2 ML VIAL IV SCH ×2 (18:18→23:30)
[2017-07-20] MEDS: INSULIN REGULAR, HUMAN 100 UNIT/ML 3 ML VIAL SQ PRN ×2 (18:19→23:42)
--- NOTE | 2017-07-20 20:00 | NUR ---
Received patient with eyes open but not tracking,non verbal not following commands.Chronic vent trach on AC mode.Congested and secretions suctioned PRN.No acute respiratory distress noted.No signs of pain.Afebrile.V-paced 60's.Hemodynamically stable.GT feeding in progress no residual noted.HOB elevated.FC to gravity draining yellow urine.IVF infusing to JEAN PAUL PICC line site intact.Contact isolation precaution for MRSA nares and ESBL urine observed.Will turn and reposition Q 2 hrs.Maintained on [employer] mattress.
[2017-07-20] MEDS: LEVOFLOXACIN 500 MG /D5W 100ML 500 MG in PREMIX 1 EA IV SCH (21:00)
[2017-07-21] VITALS (36 sets, daily range): BP systolic 92–131; BP diastolic 41–66
--- NOTE | 2017-07-21 | NUR ---
Patient resting .VS stable.With generalized anasarca,both arms weeping.Kept clean and dry.Turned and repositioned.
--- NOTE | 2017-07-21 02:00 | NUR ---
BM X 1 soft stool.Perineal care done.Bed bath rendered and linens changed.Oral care done.Turned and repositioned.
[2017-07-21 04:42] LABS: BASOPHILS % (AUTO) 0.3 % (0.0-2.0); EOSINOPHILS # (AUTO) 0.1 /CMM (0.0-0.7); EOSINOPHILS % (AUTO) 0.6 % (0.0-6.0); HEMATOCRIT 27 % (39-51); HEMOGLOBIN 8.5 g/dL (13.5-17.5); LYMPHOCYTES # (AUTO) 1.7 /CMM (0.8-4.8); MEAN CORPUSCULAR HEMOGLOBIN 32 PG (26.0-33.0); MEAN CORPUSCULAR HGB CONC 32 g/dl (31.0-36.0); MEAN CORPUSCULAR VOLUME 100 fL (80-96); MONOCYTES # (AUTO) 0.3 /CMM (0.1-1.30); MONOCYTES % (AUTO) 2.3 % (2.0-12.0); NEUTROPHILS # (AUTO) 12.3 /CMM (1.8-8.9); NEUTROPHILS % (AUTO) 84.8 % (43.0-81.0); PLATELET COUNT (AUTO) 102 /CMM (150-450); RDW COEFFICIENT OF VARIATION 26.5 (11.5-15.0); RED BLOOD CELL COUNT(AUTO) 2.66 MIL/uL (4.5-6.0); WHITE BLOOD COUNT (AUTO) 14.5 K/uL (4.3-11.0)
[2017-07-21 04:56] LABS: CALCIUM, SERUM 7.5 mg/dL (8.5-10.1); CREATININE 1.9 mg/dL (0.6-1.3); MAGNESIUM 2.1 mg/dL (1.8-2.4); PHOSPHORUS 2.7 mg/dL (2.5-4.9); POTASSIUM 3.2 mmol/L (3.5-5.1)
[2017-07-21] MEDS: BLOOD SUGAR DIAGNOSTIC 1 EACH STRIP IN SCH ×4 (06:06→23:23)
[2017-07-21] MEDS: METOCLOPRAMIDE HCL 10 MG/2 ML VIAL IV SCH ×4 (06:06→23:24)
--- NOTE | 2017-07-21 07:00 | NUR ---
ICU INITIAL NOTE RECEIVED PT IN BED, OPENS EYES, DOES NOT FOLLOW COMMANDS, MOVES UPPER EXTREMITIES, PT HAS GENERALIZED ANASARCA, BILATERAL ARMS WEEPING, MULTIPLE SKIN ISSUES, WOUND TREATMENTS ACK AND WILL BE CARRIED OUT, PT IS ON [facility] VENT SHILEY # 6 AC 16 TV 600 FIO2 40% PEEP 0,SATING WELL, NO S/S OF RESP. DISTRESS OR SOB NOTED AT THIS TIME, PT HAS UNLABORED AND EVEN BREATHING, PT IS ON BEDSIDE MONITOR SHOWING V PACING W/BBB @ 61 BPM, NO S/S NO CHEST PAIN OR DISCOMFORT AT THIS TIME, PT HAS GTUBE, RUNNING NOVASOURCE @30ML/HR, TOLERATING WELL, NO RESIDUALS NOTED, NOTED ELIAS VALVE IS NOT WORKING, LEAKING, PT HAS F/C DRAINING SANDRO URINE TO GRAVITY, PT HAS JEAN PAUL PICC,C/D/I/PATENT, FLUSHING WELL, RUNNING D5W @50ML/HR, NO S/S OF INFECTION/ INFILTRATION NOTED AT THIS TIME, ISOLATION PRECAUTIONS OBSERVED AT ALL TIMES, ALL SAFETY MEASURES IN PLACE AT ALL TIMES, CALL LIGHT WITHIN EASY REACH, WILL MONITOR PT CLOSELY FOR CHANGES
--- NOTE | 2017-07-21 07:00 | NUR ---
Patient more alert moving both upper extremities and follows simple commands at times.VS stable. Turned and repositioned. No pain.
[2017-07-21] MEDS: MUPIROCIN OINT 2% 22 GM TUBE SCH ×2 (08:46→21:10)
[2017-07-21] MEDS: LEVOTHYROXINE SODIUM 75 MCG TABLET PO SCH (08:46)
[2017-07-21] MEDS: Z GUARD REMEDY 2 OZ OINT TP PRN (08:46)
[2017-07-21] MEDS: PANTOPRAZOLE 40 MG VIAL IV SCH ×2 (08:46→16:30)
--- NOTE | 2017-07-21 08:58 | NUR ---
ICU NOTE PINK MEDICATIONS NON ADMINISTERED FOR PT SAFETY
--- NOTE | 2017-07-21 09:00 | NUR ---
ICU NOTE SISTER AT BEDSIDE, UPDATED, ANSWERED ALL QUESTIONS AND CONCERNS
[2017-07-21] MEDS ORDERED: POTASSIUM CHLORIDE 20 MEQ POWDER PACKET GT SCH ×2 (10:00→12:00)
--- NOTE | 2017-07-21 11:00 | NUR ---
ICU NOTE DR. ROTHMAN MADE ROUNDS, AWARE OF ALL LABS AND RESULTS, ALL NEW ORDERS ACK AND CARRIED OUT
[2017-07-21] MEDS: MEROPENEM 500 MG in IV NS 0.9% 50 ML IV SCH ×2 (11:38→23:24)
[2017-07-21] MEDS: INSULIN REGULAR, HUMAN 100 UNIT/ML 3 ML VIAL SQ PRN ×2 (11:41→18:48)
--- NOTE | 2017-07-21 12:36 | NUR ---
ICU NOTE AT BEDSIDE, UPDATED AND ALL QUESTIONS AND CONCERNS ANSWERED. 30 MEQ K KLOR WAS GIVEN
--- NOTE | 2017-07-21 12:37 | NUR ---
ICU NOTE DR. MACK'S MAIN ENTREE COOK AND CASHIER, MADE ROUNDS, AWARE OF ALL LABS AND RESULTS, NO NEW ORDERS AT THIS TIME
[2017-07-21] MEDS: RENAL NOVASOURCE 1,000 ML BOTTLE GT PRN (16:30)
[2017-07-21] MEDS: IV NS 0.9% 250 ML IV PRN (16:31)
--- NOTE | 2017-07-21 17:00 | NUR ---
ICU NOTE PT NOTED IWTH WOUND ON PENIS, WOUND TREATMENT PROVIDED, PHOTO TAKEN AND WOUND CONSULT ORDERED
--- NOTE | 2017-07-21 19:30 | NUR ---
911 EMERGENCY SERVICES DISPATCHER: RECEIVED CHRONIC VENT DEPENDENT PT ALERT AND AWAKE, WATCHING TV. ABLE TO FOLLOW SIMPLE COMMANDS. ABLE TO COMMUNICATE VIA MOUTHING OF WORDS, FACIAL AND HAND GESTURES. TOLERATING VENT SETTINGS ORDERED WT NO ACUTE DISTRESS. NO EVIDENCE OR C/O DISCOMFORT. V-PACED WT HR IN THE 60s. AFEBRILE. BP WNL. TOLERATING GTF WELL WT 5CC RESIDUAL. F/C PATENT AND INTACT DRAINING SANDRO COLORED URINE TO GRAVITY. HOB AT 35 DEGREES. SAFETY AND ISOLATION PRECAUTION NOTED. WILL CONTINUE TO MONITOR.
--- NOTE | 2017-07-21 23:30 | NUR ---
SURFACING MACHINE OPERATOR: PT REMAINED ALERT AND AWAKE, WATCHING TV. ASKED IF WANTS TO GET REST/SLEEP AND TURN TV OFF BUT SHOOK HIS HEAD FOR "NO". NO ACUTE DISTRESS. VS WITHIN HIS BASELINE. TOLERATING GTF WT NO RESIDUAL. GOOD URINE OUTPUT DRAINING TO GRAVITY.
[2017-07-22] VITALS (33 sets, daily range): BP systolic 101–162; BP diastolic 42–96
--- NOTE | 2017-07-22 04:00 | NUR ---
TRANSITIONAL CARE NURSE: BED BATH GIVEN AND TOLERATED FAIRLY. TOLERATING GTF WT 10CC RESIDUAL. VS WITHIN HIS BASELINE.
[2017-07-22 05:04] LABS: BASOPHILS % (AUTO) 0.2 % (0.0-2.0); EOSINOPHILS # (AUTO) 0.1 /CMM (0.0-0.7); EOSINOPHILS % (AUTO) 0.7 % (0.0-6.0); HEMATOCRIT 28 % (39-51); HEMOGLOBIN 8.8 g/dL (13.5-17.5); LYMPHOCYTES # (AUTO) 2.6 /CMM (0.8-4.8); LYMPHOCYTES % (AUTO) 14.2 % (20.0-44.0); MEAN CORPUSCULAR HEMOGLOBIN 32 PG (26.0-33.0); MEAN CORPUSCULAR HGB CONC 32 g/dl (31.0-36.0); MEAN CORPUSCULAR VOLUME 100 fL (80-96); MONOCYTES # (AUTO) 0.3 /CMM (0.1-1.30); MONOCYTES % (AUTO) 1.8 % (2.0-12.0); NEUTROPHILS # (AUTO) 15.3 /CMM (1.8-8.9); NEUTROPHILS % (AUTO) 83.1 % (43.0-81.0); PLATELET COUNT (AUTO) 101 /CMM (150-450); RDW COEFFICIENT OF VARIATION 26.9 (11.5-15.0); RED BLOOD CELL COUNT(AUTO) 2.78 MIL/uL (4.5-6.0); WHITE BLOOD COUNT (AUTO) 18.4 K/uL (4.3-11.0)
[2017-07-22 05:14] LABS: CALCIUM, SERUM 7.5 mg/dL (8.5-10.1); CREATININE 1.4 mg/dL (0.6-1.3); MAGNESIUM 1.9 mg/dL (1.8-2.4); PHOSPHORUS 2.7 mg/dL (2.5-4.9); POTASSIUM 3.2 mmol/L (3.5-5.1)
[2017-07-22] MEDS: METOCLOPRAMIDE HCL 10 MG/2 ML VIAL IV SCH ×3 (05:20→17:22)
[2017-07-22] MEDS: BLOOD SUGAR DIAGNOSTIC 1 EACH STRIP IN SCH ×3 (05:27→17:22)
[2017-07-22] MEDS: INSULIN REGULAR, HUMAN 100 UNIT/ML 3 ML VIAL SQ PRN ×2 (05:29→12:00)
--- NOTE | 2017-07-22 06:25 | NUR ---
SUPERVISOR PAYROLL: NO SIGNIFICANT ELO DURING THE SHIFT. REMAINED ALERT AND AWAKE. TOLERATING VENT SETTINGS ORDERED WT NO ACUTE DISTRESS. VS WITHIN HIS BASELINE. ALL NEEDS MET. WILL ENDORSE TO DAY SHIFT FOR CONTINUITY OF CARE.
--- NOTE | 2017-07-22 07:00 | NUR ---
ICU INITIAL NOTE RECEIVED PT IN BED, OPENS EYES, DOES NOT FOLLOW COMMANDS, MOVES UPPER EXTREMITIES, PT HAS GENERALIZED ANASARCA, BILATERAL ARMS WEEPING, MULTIPLE SKIN ISSUES, WOUND TREATMENTS ACK AND WILL BE CARRIED OUT, PT IS ON [facility] VENT [place]I[facility] # 6 AC 16 TV 600 FIO2 40% PEEP 0,SATING WELL, NO S/S OF RESP. DISTRESS OR SOB NOTED AT THIS TIME, PT HAS UNLABORED AND EVEN BREATHING, PT IS ON BEDSIDE MONITOR SHOWING V PACING W/BBB @ 70'S BPM, NO S/S NO CHEST PAIN OR DISCOMFORT AT THIS TIME, PT HAS GTUBE, RUNNING NOVASOURCE @30ML/HR, TOLERATING WELL, NO RESIDUALS NOTED, PT HAS F/C DRAINING SANDRO URINE TO GRAVITY, PT HAS JEAN PAUL PICC,C/D/I/PATENT, FLUSHING WELL, RUNNING TKO @5 ML/HR, NO S/S OF INFECTION/ INFILTRATION NOTED AT THIS TIME, ISOLATION PRECAUTIONS OBSERVED AT ALL TIMES, ALL SAFETY MEASURES IN PLACE AT ALL TIMES, CALL LIGHT WITHIN EASY REACH, WILL MONITOR PT CLOSELY FOR CHANGES
[2017-07-22] MEDS: PANTOPRAZOLE 40 MG VIAL IV SCH ×2 (08:31→17:22)
[2017-07-22] MEDS: LEVOTHYROXINE SODIUM 75 MCG TABLET PO SCH (08:31)
[2017-07-22] MEDS: Z GUARD REMEDY 2 OZ OINT TP PRN (08:32)
[2017-07-22] MEDS: MUPIROCIN OINT 2% 22 GM TUBE SCH ×2 (08:32→21:25)
[2017-07-22] MEDS: POTASSIUM CL. PREMIX PERIPHER. 50 ML IV SCH ×3 (10:34→12:36)
[2017-07-22] MEDS: MEROPENEM 1 G in IV NS 0.9% 100 ML IV SCH ×2 (10:34→17:22)
[2017-07-22] MEDS: SIMETHICONE SUSP 40 MG/0.6 ML BOTTLE PO PRN (11:53)
--- NOTE | 2017-07-22 12:53 | NUR ---
ICU NOTE AT BEDSIDE, UPDATED ON PT CONDITION, ALL QUESTIONS AND CONCERNS ANSWERED
--- NOTE | 2017-07-22 12:54 | NUR ---
ICU NOTE POTASSIUM 30MEQ REPLACED PER MD ORDER
[2017-07-22] MEDS: IV NS 0.9% 250 ML IV PRN (14:37)
[2017-07-22] MEDS: RENAL NOVASOURCE 1,000 ML BOTTLE GT PRN (14:37)
--- NOTE | 2017-07-22 16:14 | NUR ---
ICU NOTE DIETARY CALLED RECOMMENDING TO INCREASE FEEDING TO 35ML/HR, AWARE, INCREASED FEEDING TO 35ML/HR
--- NOTE | 2017-07-22 19:30 | NUR ---
MANUFACTURER'S REPRESENTATIVE: PT ALERT AND AWAKE, WATCHING TV. ABLE TO FOLLOW SIMPLE COMMANDS. TOLERATING VENT SETTINGS ORDERED WT NO ACUTE DISTRESS. NO C/O PAIN OR EVIDENCE OF DISCOMFORT. 100% V-PACING ON ROBOT OPERATOR WT HR IN 60s. TOLERATING GTF AT 35ML/HR WT NO RESIDUAL. F/C PATENT AND INTACT DRAINING SANDRO COLORED URINE TO GRAVITY. JEAN PAUL PICC TKO WT NO S/S OF COMPLICATIONS. HOB AT 35 DEGREES. WILL CONTINUE TO MONITOR.
[2017-07-22] MEDS: LEVOFLOXACIN 500 MG /D5W 100ML 500 MG in PREMIX 1 EA IV SCH (21:22)
[2017-07-23] VITALS (12 sets, daily range): BP systolic 96–129; BP diastolic 34–64
[2017-07-23] MEDS: METOCLOPRAMIDE HCL 10 MG/2 ML VIAL IV SCH ×5 (00:09→23:37)
[2017-07-23] MEDS: BLOOD SUGAR DIAGNOSTIC 1 EACH STRIP IN SCH ×5 (00:13→23:37)
--- NOTE | 2017-07-23 00:30 | NUR ---
CAPACITY PLANNING ENGINEER: VS WITHIN PATIENT'S BASELINE. GTF TOLERATED WELL. NO ACUTE DISTRESS. BED BATH GIVEN AND TOLERATED FAIRLY.
[2017-07-23] MEDS: MEROPENEM 1 G in IV NS 0.9% 100 ML IV SCH ×3 (01:13→17:56)
[2017-07-23] MEDS: LORAZEPAM INJ 2 MG/ML VIAL IV PRN (02:29)
--- NOTE | 2017-07-23 03:00 | NUR ---
DATABASE MARKETING SPECIALIST: REASSESSED AFTER GIVEN ATIVAN FOR EPISODE OF RESTLESSNESS M/B HYPERVENTILATION WT GOOD EFFECT. PT CALM AT THIS TIME AND WATCHING TV.
[2017-07-23 04:38] LABS: BASOPHILS % (AUTO) 0.2 % (0.0-2.0); EOSINOPHILS % (AUTO) 0.2 % (0.0-6.0); HEMATOCRIT 25 % (39-51); HEMOGLOBIN 8.2 g/dL (13.5-17.5); LYMPHOCYTES # (AUTO) 1.8 /CMM (0.8-4.8); LYMPHOCYTES % (AUTO) 9.9 % (20.0-44.0); MEAN CORPUSCULAR HEMOGLOBIN 32 PG (26.0-33.0); MEAN CORPUSCULAR HGB CONC 32 g/dl (31.0-36.0); MEAN CORPUSCULAR VOLUME 101 fL (80-96); MONOCYTES # (AUTO) 0.3 /CMM (0.1-1.30); MONOCYTES % (AUTO) 1.6 % (2.0-12.0); NEUTROPHILS # (AUTO) 16.1 /CMM (1.8-8.9); NEUTROPHILS % (AUTO) 88.1 % (43.0-81.0); PLATELET COUNT (AUTO) 91 /CMM (150-450); RDW COEFFICIENT OF VARIATION 26.1 (11.5-15.0); RED BLOOD CELL COUNT(AUTO) 2.52 MIL/uL (4.5-6.0); WHITE BLOOD COUNT (AUTO) 18.3 K/uL (4.3-11.0)
--- NOTE | 2017-07-23 04:40 | NUR ---
RETAIL COVERAGE MERCHANDISER LEAD: REPORT GIVEN TO NAZARIO OLIVAREZ FOR [facility] TRANSFER.
[2017-07-23 04:47] LABS: CALCIUM, SERUM 7.2 mg/dL (8.5-10.1); CREATININE 1.3 mg/dL (0.6-1.3); MAGNESIUM 1.8 mg/dL (1.8-2.4); PHOSPHORUS 2.9 mg/dL (2.5-4.9); POTASSIUM 3.1 mmol/L (3.5-5.1)
--- NOTE | 2017-07-23 05:00 | NUR ---
RN NOTE RECEIVED PT IN NO ACUTE DISRESS IN BED. PT IS A/O X 1 AND ABLE TO ANSWER BY NODDING HEAD YES, NO. PT IS ON MECHANICAL VENT VIA TRACH. TRACH SITE IS CLEAN DRY AND INTACT. PT IS NOT SHOWING ANY S/S OF SOB, DIFFICULTY BREATHING OR PAIN AT THIS TIME. PT HAS GTUBE THAT IS CLEAN DRY INTACT AND PATENT WITH NOVASOURCE @ 35ML/HR AND TOLERATING WELL WITH 0 RESIDUAL. PT HAS REGGIE PICC THAT IS CLEAN DRY INTACT AND PATENT WITH NS @ TKO. BED IN LOW LOCK POSITION WITH RIALS UP X 2. CALL LIGHT WITHIN REACH AND ALL SAFETY MEASURES ENSURED AND CARRIED OUT. WILL CONTINUE TO MONITOR FOR ANY CHANGES IN CONDITION.
--- NOTE | 2017-07-23 05:00 | NUR ---
REAMING MACHINE TENDER: PT TRANSFERRED TO [facility] ROOM 109 IN STABLE CONDITION. ALL NEEDS MET.
[2017-07-23 05:01] LABS: BAND % (MANUAL) 1 % (0.0-5.0); LYMPHOCYTES % (MANUAL) 5 % (16-48); MONOCYTES % (MANUAL) 3 % (0-11.0); NEUTROPHILS % (MANUAL) 91 (42-76)
[2017-07-23] MEDS: INSULIN REGULAR, HUMAN 100 UNIT/ML 3 ML VIAL SQ PRN ×2 (06:34→23:37)
--- NOTE | 2017-07-23 07:34 | NUR ---
RN CLOSING NOTE PT REMAINS IN NO ACUTE DISTRESS IN BED. PT DID NOT HAVE ANY SIGNIFICANT CHANGE IN CONDITION DURING SHIFT. ALL NEEDS MET, ALL ORDERS CARRIED OUT. PT TOLERATED VENT SETTING WELL. WILL ENDORSE CARE TO AM RN FOR CONTINUITY OF CARE.
--- NOTE | 2017-07-23 07:55 | NUR ---
[facility] INITIAL RN NOTE RN RECEIVED PT IN BED, OPENS EYES TO TOUCH AND SOUND ANGOLAN SPEAKING WITH MINIMAL UNDERSTANDING OF YAKUT. PT HAS GENERALIZED EDEMA AND NOTED BILATERAL ARMS WEEPING, ALONG WITH MULTIPLE SKIN ISSUES, PT IS ON [facility] VENT [place] # 6 AC 16 TV 600 FIO2 40% PEEP 0,SATING WELL, NO S/S OF RESP. DISTRESS OR SOB NOTED AT THIS TIME, PT HAS UNLABORED AND EVEN BREATHING, PT IS ON BEDSIDE MONITOR SHOWING V PACING W/BBB @ 70'S BPM, NO S/S NO CHEST PAIN OR DISCOMFORT AT THIS TIME, PT HAS GTUBE, RUNNING NOVASOURCE @35ML/HR, TOLERATING WELL, NO RESIDUALS NOTED, PT HAS F/C DRAINING SANDRO URINE TO GRAVITY, PT HAS JEAN PAUL PICC,C/D/I/PATENT, FLUSHING WELL, SL. NO S/S OF INFECTION/ INFILTRATION NOTED AT THIS TIME CONTACT ISOLATION PRECAUTIONS OBSERVED AT ALL TIMES, SAFETY MEASURES IN PLACE AT ALL TIMES, CALL LIGHT WITHIN EASY REACH BED LOCKED TO LOWEST POSITION , RN WILL MONITOR PT CLOSELY FOR CHANGES THROUGHOUT THE DAY
[2017-07-23] MEDS: POTASSIUM CL. PREMIX PERIPHER. 50 ML IV SCH ×2 (08:59→12:20)
[2017-07-23] MEDS: MUPIROCIN OINT 2% 22 GM TUBE SCH ×2 (09:00→20:22)
[2017-07-23] MEDS: LEVOTHYROXINE SODIUM 75 MCG TABLET PO SCH (09:00)
[2017-07-23] MEDS: PANTOPRAZOLE 40 MG VIAL IV SCH ×2 (09:01→17:50)
--- NOTE | 2017-07-23 09:35 | NUR ---
RN NOTE SOME DIFFICULTY EXPERIENCED WHILE FLUSHING PICC LINE HOWEVER , BLOOD RETURN NOTED AND FLUIDS RUNNING RN WILL CONTINUE TO FOLLOW
--- NOTE | 2017-07-23 12:22 | NUR ---
RN NOTE PATIENT REFUSED INSULIN COVERAGE STATES SHE IS AFRAID THE PATIENT CBG WILL DECREASE . RN EXPLAINED THE IMPORTANCE OF ADHERENCE RN WILL CONTINUE TO FOLLOW
[2017-07-23] MEDS: ALBUTEROL FS 2.5 MG/3 ML VIAL.NEB NEB SCH ×3 (14:40→23:56)
--- NOTE | 2017-07-23 18:32 | NUR ---
RN CLOSING NOTE PT REMAINS IN NO ACUTE DISTRESS IN BED. NO SIGNIFICANT CHANGES IN CONDITION DURING SHIFT. ALL NEEDS MET, ALL ORDERS CARRIED OUT. PT TOLERATED VENT SETTING WELL. RN WILL ENDORSE CARE TO PM RN FOR CONTINUITY OF CARE.
--- NOTE | 2017-07-23 19:05 | NUR ---
CAR DISPATCHER OPENING NOTES RECEIVED REPORT FROM PETER LANGE. PATIENT A/A/O X1. TRACH INTACT W/ VENT SETTINGS AC 16, TV 600, FIO2 40%, PEEP 0. NO RESPIRATORY DISTRESS NOTED. ON TELE V-PACING IN THE 60S. LEFT UPPER ARM PICC LINE INTACT & PATENT W/ DRESSING CDI & IVF KCL 10 MEQ IN 1/2 NS @ 50 ML/HR. G-TUBE INTACT & PATENT W/ GTF NOVASOURCE @ 35 ML/HR. NO RESIDUAL NOTED @ THIS TIME. KULKARNI CATH INTACT & DRAINING YELLOW URINE. NO S/S OF PAIN OR DISCOMFORT @ THIS TIME. SAFETY MEASURES IN PLACE W/ SIDE RAILS UP, BED LOCKED & IN LOWEST POSITION & CALL LIGHT WITHIN REACH. WILL CONTINUE TO MONITOR
[2017-07-24] VITALS: BP 105/56
[2017-07-24] MEDS: RENAL NOVASOURCE 1,000 ML BOTTLE GT PRN (00:09)
[2017-07-24] MEDS: MEROPENEM 1 G in IV NS 0.9% 100 ML IV SCH ×3 (01:34→18:11)
[2017-07-24] MEDS: ALBUTEROL FS 2.5 MG/3 ML VIAL.NEB NEB SCH ×6 (03:47→23:43)
[2017-07-24 04:00] VITALS: BP 107/50
[2017-07-24] MEDS: BLOOD SUGAR DIAGNOSTIC 1 EACH STRIP IN SCH ×4 (05:09→23:32)
[2017-07-24] MEDS: METOCLOPRAMIDE HCL 10 MG/2 ML VIAL IV SCH ×4 (05:09→23:35)
[2017-07-24] MEDS: INSULIN REGULAR, HUMAN 100 UNIT/ML 3 ML VIAL SQ PRN ×2 (05:31→23:32)
[2017-07-24 06:39] LABS: BASOPHILS % (AUTO) 0.3 % (0.0-2.0); EOSINOPHILS # (AUTO) 0.1 /CMM (0.0-0.7); EOSINOPHILS % (AUTO) 0.6 % (0.0-6.0); HEMATOCRIT 26 % (39-51); HEMOGLOBIN 8.5 g/dL (13.5-17.5); LYMPHOCYTES # (AUTO) 2.8 /CMM (0.8-4.8); LYMPHOCYTES % (AUTO) 16.1 % (20.0-44.0); MEAN CORPUSCULAR HEMOGLOBIN 33 PG (26.0-33.0); MEAN CORPUSCULAR HGB CONC 32 g/dl (31.0-36.0); MEAN CORPUSCULAR VOLUME 103 fL (80-96); MONOCYTES # (AUTO) 0.4 /CMM (0.1-1.30); MONOCYTES % (AUTO) 2.6 % (2.0-12.0); NEUTROPHILS # (AUTO) 13.8 /CMM (1.8-8.9); NEUTROPHILS % (AUTO) 80.4 % (43.0-81.0); PLATELET COUNT (AUTO) 108 /CMM (150-450); RDW COEFFICIENT OF VARIATION 24.4 (11.5-15.0); RED BLOOD CELL COUNT(AUTO) 2.54 MIL/uL (4.5-6.0); WHITE BLOOD COUNT (AUTO) 17.1 K/uL (4.3-11.0)
[2017-07-24 06:56] LABS: CALCIUM, SERUM 7.6 mg/dL (8.5-10.1); CREATININE 1.2 mg/dL (0.6-1.3); MAGNESIUM 1.9 mg/dL (1.8-2.4); PHOSPHORUS 2.9 mg/dL (2.5-4.9); POTASSIUM 3.3 mmol/L (3.5-5.1)
[2017-07-24 07:40] LABS: EOSINOPHILS % (MANUAL) 1 % (0-4); LYMPHOCYTES % (MANUAL) 16 % (16-48); MONOCYTES % (MANUAL) 4 % (0-11.0); NEUTROPHILS % (MANUAL) 79 (42-76)
[2017-07-24 08:00] VITALS: BP 133/46
[2017-07-24] MEDS: LEVOTHYROXINE SODIUM 75 MCG TABLET PO SCH (08:06)
[2017-07-24] MEDS: PANTOPRAZOLE 40 MG VIAL IV SCH ×2 (08:06→18:10)
[2017-07-24] MEDS: MUPIROCIN OINT 2% 22 GM TUBE SCH ×2 (08:06→20:57)
--- NOTE | 2017-07-24 10:05 | NUR ---
RN NOTE PLAN OF CARE DISCUSSED WITH PATIENT AND FAMILY - SISTER CALLED AND ALSO VISITED THE PATIENT TODAY PATIENT CURRENTLY RESTING IN BED ALL NEEDS ADDRESSED PATIENT HAS BEEN REQUESTING THAT NURSING STAFF GIVE HIM WATER FAMILY STATES THAT THE PATIENT HAS NOT EATING OR HAD WATER FOR MONTHS DUE TO THE INCREASE CHANCE OF ASPIRATION.
--- NOTE | 2017-07-24 11:32 | NUR ---
RN NOTE PATIENT WITNESSED REPEATEDLY REMOVING VENTILATOR FROM NECK, RT CONTACTED FOR ASSESSMENT PATIENT ALSO WITNESSED INCREASING RESPIRATIONS TO CAUSE VENT TO DISCONNECT FROM THE SYSTEM . PT S[place]ESE SPEAKING PAN RN SPOKE TO PATIENT AND DISCUSSED THE IMPORTANCE OF ADHERENCE TO NOT REMOVING THE VENTILATOR EQUIPMENT. PATIENT ACKNOWLEDGES HOWEVER CONTINUES TO INTERFERE WITH MEDICAL TREATMENT
[2017-07-24 12:00] VITALS: BP 145/61
--- NOTE | 2017-07-24 12:00 | NUR ---
RN NOTE RN SPOKE WITH MD DIAZ IN REGARDS TO THE PATIENT INTERFERING WITH MEDICAL TREATMENT AND PULLING LINES, AUTHORIZED AND ACKNOWLEDGED BILATERAL MITTENS TO PREVENT FROM INJURY , AND HELP PROVIDE SAFETY FOR THE PATIENT , PATIENT IS CURRENTLY RESTING RN WILL CONTINUE TO FOLLOW , CHA;SO STATES THE PATIENT SHOULD NOR BE GIVEN ANY ORAL GRATIFICATION DUE TO HIGH RISK OF ASPIRATION , NO H20 OR ICE CHIPS , ONLY ORAL SWABS
[2017-07-24] MEDS ORDERED: IV D5W 1,000 ML IV ONE (12:30)
--- NOTE | 2017-07-24 13:41 | NUR ---
WOUND CARE CONSULT: PT SEEN FOR PENIS WOUND AND SCROTAL EDEMA. PT HAS PROFOUND GENERALIZED EDEMA WHICH IS 3 TO 4+ AND PITTING. ARMS NOTED TO HAVE WEEPING EDEMA. PENIS HAS OPEN WOUND WITH EDEMA. RECOMMENDATIONS MADE AND DISCUSSED WITH NURSING STAFF FOR WOUND CARE. CONTINUE ALL SKIN PROTECTION MEASURES. WILL SEE PRN. MARTINEZ IN AGREEMENT WITH PLAN OF CARE. Addendum: 07/24/17 at 1345 by SAMANTHA BILLY WNDNU Amended: Links added.
[2017-07-24 16:00] VITALS: BP_SYST 138; BP_DIAS 31; BP_DIAS 36
--- NOTE | 2017-07-24 18:31 | NUR ---
RN NOTE PATIENT CBG CHECKED PATIENT AT BEDSIDE PATIENT AND REFUSED INSULIN FOR PM SHIFT RN EXPLAINED THE IMPORTANCE OF INSULIN ADMINISTRATION. RN WILL CONTINUE TO FOLLOW
--- NOTE | 2017-07-24 18:35 | NUR ---
RN CLOSING NOTE PT REMAINS IN NO ACUTE DISTRESS IN BED. NO SIGNIFICANT CHANGES IN CONDITION DURING SHIFT. PATIENT BILATERAL MITTEN ARE CURRENTLY OFF TO ALLOW FOR A BREAK PATIENT AND FAMILY EDUCATED ON THE IMPORTANCE OF NOT INTERING WITH MEDICAL TREATMENT ALL NEEDS MET, ALL ORDERS CARRIED OUT. PT TOLERATED VENT SETTING WELL. RN WILL ENDORSE CARE TO PM RN FOR CONTINUITY OF CARE.
--- NOTE | 2017-07-24 19:05 | NUR ---
STATEMENT PROCESSOR OPENING NOTES RECEIVED REPORT FROM PETER LANGE. PATIENT A/A/O X1. TRACH INTACT W/ VENT SETTINGS AC 16, TV 600, FIO2 40%, PEEP 0. NO RESPIRATORY DISTRESS NOTED. ON TELE V-PACING IN THE 60S. LEFT UPPER ARM PICC LINE INTACT & PATENT W/ DRESSING CDI & IVF KCL 2 MEQ IN D5W @ 50 ML/HR. G-TUBE INTACT & PATENT W/ GTF NOVASOURCE @ 35 ML/HR. NO RESIDUAL NOTED @ THIS TIME. KULKARNI CATH INTACT & DRAINING SANDRO COLORED URINE. NO S/S OF PAIN OR DISCOMFORT @ THIS TIME. SAFETY MEASURES IN PLACE W/ SIDE RAILS UP, BED LOCKED & IN LOWEST POSITION & CALL LIGHT WITHIN REACH. WILL CONTINUE TO MONITOR
[2017-07-24 20:00] VITALS: BP 129/55
[2017-07-24] MEDS: LEVOFLOXACIN 500 MG /D5W 100ML 500 MG in PREMIX 1 EA IV SCH (20:51)
[2017-07-24] MEDS: Potassium Chloride 10 MEQ in IV D5W 1,000 ML IV PRN (20:57)
[2017-07-25] VITALS: BP 104/38
[2017-07-25] MEDS: ALBUTEROL FS 2.5 MG/3 ML VIAL.NEB NEB SCH ×6 (03:59→23:37)
[2017-07-25 04:00] VITALS: BP 159/72
[2017-07-25] MEDS: MEROPENEM 1 G in IV NS 0.9% 100 ML IV SCH ×3 (04:01→17:09)
[2017-07-25] MEDS: METOCLOPRAMIDE HCL 10 MG/2 ML VIAL IV SCH ×4 (05:17→23:31)
[2017-07-25] MEDS: BLOOD SUGAR DIAGNOSTIC 1 EACH STRIP IN SCH ×4 (05:24→23:36)
[2017-07-25] MEDS: INSULIN REGULAR, HUMAN 100 UNIT/ML 3 ML VIAL SQ PRN ×3 (05:26→23:39)
[2017-07-25 05:30] LABS: BASOPHILS % (AUTO) 0.2 % (0.0-2.0); EOSINOPHILS # (AUTO) 0.1 /CMM (0.0-0.7); HEMATOCRIT 25 % (39-51); HEMOGLOBIN 7.7 g/dL (13.5-17.5); LYMPHOCYTES # (AUTO) 0.7 /CMM (0.8-4.8); LYMPHOCYTES % (AUTO) 5.8 % (20.0-44.0); MEAN CORPUSCULAR HEMOGLOBIN 32 PG (26.0-33.0); MEAN CORPUSCULAR HGB CONC 31 g/dl (31.0-36.0); MEAN CORPUSCULAR VOLUME 101 fL (80-96); MONOCYTES # (AUTO) 0.4 /CMM (0.1-1.30); MONOCYTES % (AUTO) 3.6 % (2.0-12.0); NEUTROPHILS # (AUTO) 10.9 /CMM (1.8-8.9); NEUTROPHILS % (AUTO) 89.4 % (43.0-81.0); PLATELET COUNT (AUTO) 130 /CMM (150-450); RED BLOOD CELL COUNT(AUTO) 2.45 MIL/uL (4.5-6.0); WHITE BLOOD COUNT (AUTO) 12.1 K/uL (4.3-11.0)
[2017-07-25 05:49] LABS: CALCIUM, SERUM 7.4 mg/dL (8.5-10.1); CREATININE 1.3 mg/dL (0.6-1.3); MAGNESIUM 1.8 mg/dL (1.8-2.4); PHOSPHORUS 3.5 mg/dL (2.5-4.9); POTASSIUM 3.3 mmol/L (3.5-5.1)
--- NOTE | 2017-07-25 07:46 | NUR ---
RAGS LABORER NOTES RECEIVED REPORT PATIENT A/A/O X1. TRACH INTACT W/ VENT SETTINGS AC 16, TV 600, FIO2 40%, PEEP 0. NO RESPIRATORY DISTRESS NOTED. ON TELE V-PACING IN THE 60S. LEFT UPPER ARM PICC LINE INTACT & PATENT W/ DRESSING CDI & IVF KCL 2 MEQ IN D5W @ 50 ML/HR. G-TUBE INTACT & PATENT W/ GTF NOVASOURCE @ 35 ML/HR. NO RESIDUAL NOTED @ THIS TIME. KULKARNI CATH INTACT & DRAINING SANDRO COLORED URINE. NO S/S OF PAIN OR DISCOMFORT @ THIS TIME. SAFETY MEASURES IN PLACE W/ SIDE RAILS UP, BED LOCKED & IN LOWEST POSITION & CALL LIGHT WITHIN REACH. WILL CONTINUE TO MONITOR, AMBU BAG AT [facility] , RT AT BEDSIDE
[2017-07-25 08:00] VITALS: BP 89/42
[2017-07-25] MEDS: LEVOTHYROXINE SODIUM 75 MCG TABLET PO SCH (08:46)
[2017-07-25] MEDS: PANTOPRAZOLE 40 MG VIAL IV SCH ×2 (08:46→16:28)
[2017-07-25] MEDS: MUPIROCIN OINT 2% 22 GM TUBE SCH ×2 (08:47→21:18)
--- NOTE | 2017-07-25 10:30 | NUR ---
KEY CARRIER NOTE SPOKE LILY DIETITIAN ,NOTIFIED THAT PATIENT FEELS HUNGRY, STATED WILL CHECK G TUBE RATE
[2017-07-25 12:00] VITALS: BP 110/50
[2017-07-25] MEDS ORDERED: BUMETANIDE INJ 0.25 MG/ML VIAL IV ONE ×2 (12:00→13:30)
--- NOTE | 2017-07-25 12:10 | NUR ---
TOLL MECHANIC NOTE SPOKE WITH DR FERGUSON NOTIFIED THAT K 3.3 NA 151 ,STATED INCREASE FREE WATER WITH 250 ML Q6 HOUR, AWARE THAT PATIENT HAS GENERALIZED EDEMA Addendum: 07/25/17 at 1212 by VIVI HURTADO RN DR TAMEZ COMMUNICABLE DISEASE SPECIALIST AWARE THAT HG 7.7 WITH ORDER TO COLLECT STOOL FOR OB ,WILL F\U Addendum: 07/25/17 at 1840 by VIVI HURTADO RN 1210 DR FERGUSON AWARE THAT K 3.3 OK CONT IVF WITH KCL
--- NOTE | 2017-07-25 14:00 | NUR ---
VACUUM METALIZER OPERATOR NOTE SPOKE WITH DR ARIAS NOTIFIED THAT FAMILY IS WAITING IN ROOM TO SPEAK WITH HIM, STATED OK WILL SEE FAMILY SOON
--- NOTE | 2017-07-25 14:51 | NUR ---
REYNALDO LANGE NOTE PER DIETARY OK TO START PROSTAT AND NEPRO VIT , ALSO CONT SAME G TUBE FEEDING ORDERED ANGELINA LANGE MACHINE MAINTENANCE TECHNICIAN FOR DR FREDERICK TORRES NOTIFIED Addendum: 07/25/17 at 1530 by VIVI HURTADO RN ON BREATHING TX ORDERED ,KEEP CLEAN DRY Addendum: 07/25/17 at 1704 by VIVI HURTADO RN TRIED TO REMOVE MITTENS BUT PATIENT STILL TRYING TO REMOVE TRACH , WILL F\U ,FAMILY AT BEDSIDE
[2017-07-25] MEDS: ACETAMINOPHEN 650 MG/20.3 ML UDC GT PRN (15:04)
[2017-07-25 16:00] VITALS: BP 92/42
[2017-07-25] MEDS: RENAL NOVASOURCE 1,000 ML BOTTLE GT PRN (16:39)
--- NOTE | 2017-07-25 18:35 | NUR ---
PRESSURE SUPERVISOR NOTE FAMILY AT BEDSIDE , ON IVF ORDERED, REPOSITION Q2 HOUR DONE, KEEP UPPER AND LOWER EXTREMITIES ELEVATED AT ALL TIME TO REDUCE EDEMA, WILL CONT TO MONITOR CLOSELY
--- NOTE | 2017-07-25 19:15 | NUR ---
RN INITIAL NOTES RECEIVED PATIENT IN BED, SLEEPING COMFORTABLY, NO ACUTE DISTRESS OBSERVED. ON MECH VENT VIA TRACH, C/D/I, MIDLINE, AIRWAY SUCTIONED NEEDED, KEPT CLEAR AND PATENT. PATIENT IS V-PACING ON TELE MONITOR WITH HR OF 68, BBB NOTED. ANASARCA OBSERVED, WITH WEEPING EDEMA ON BUE - L > R. KEPT CLEAN AND DRY. F/C IN PLACE, DRAINING WITH SANDRO COLORED URINE. GTF INFUSING WELL ORDERED, NO GASTRIC RESIDUAL NOTED. REGGIE PICC LINE, FLUSHED AND KEPT PATENT, IVF ORDERED. PATIENT'S NEEDS ANTICIPATED AND MET. SAFETY AND COMFORT ENSURED. PATIENT'S FAMILY JUST LEFT BEDSIDE, B MITTENS LEFT OFF AT THIS TIME, WILL OBSERVE PATIENT'S BEHAVIOR CLOSELY FOR NEED FOR USE OF MITTENS.
[2017-07-25 20:00] VITALS: BP 105/41
--- NOTE | 2017-07-25 20:30 | NUR ---
RN NOTES PATIENT NOTED TO BE AWAKE AT THIS TIME, PATIENT ABLE TO MOUTH WORDS AND MAKE NEEDS KNOWN WITH GESTURES. PATIENT REQUESTING FOR WATER/JUICE. REORIENTED PATIENT NEEDED AND PROVIDED HEALTH TEACHING REGARDING RISKS FOR ASPIRATION. PATIENT UNABLE TO COMPLY/COMPREHEND, KEPT INSISTING. PATIENT ALSO OBSERVED TO BE PULLING ON VENT TUBINGS. BILATERAL MITTENS REPLACED FOR SAFETY ORDERED. WILL CONTINUE TO MONITOR.
[2017-07-26] VITALS: BP 126/44
[2017-07-26] MEDS: MEROPENEM 1 G in IV NS 0.9% 100 ML IV SCH ×3 (01:24→17:06)
[2017-07-26] MEDS: Potassium Chloride 10 MEQ in IV D5W 1,000 ML IV PRN (01:24)
--- NOTE | 2017-07-26 03:00 | NUR ---
RN NOTES PATIENT PROVIDED WITH AM CARE. PATIENT KEPT CLEAN AND DRY. GOOD PERICARE RENDERED. F/C CARE DONE, DRAINING WITH CLEAR, SANDRO COLORED URINE. BLE, BUE, AND SCROTAL EDEMA NOTED WITH BUE NOTED WITH WEEPING EDEMA, ELEVATED EXTREMITIES WITH PILLOWS. PATIENT TURNED AND REPOSITIONED. WOUND CARE DONE. TRACH CARE DONE, SUCTIONED AIRWAY NEEDED. PATIENT'S NEEDS ANTICIPATED AND MET. SAFETY AND COMFORT ENSURED. TURNED AND REPOSITIONED. CALL LIGHT IN REACH. RELEASE OF BILATERAL MITTENS DONE, CIRCULATION AND SKIN INTEGRITY CHECKED. REPLACED MITTENS POST AM CARE D/T PATIENT'S GESTURING TO REMOVE/PULL ON TUBINGS. ON CONTINUOUS MONITORING.
[2017-07-26] MEDS: ALBUTEROL FS 2.5 MG/3 ML VIAL.NEB NEB SCH ×6 (03:11→23:42)
[2017-07-26 04:00] VITALS: BP 116/82
[2017-07-26] MEDS: METOCLOPRAMIDE HCL 10 MG/2 ML VIAL IV SCH ×4 (05:37→23:48)
[2017-07-26] MEDS: BLOOD SUGAR DIAGNOSTIC 1 EACH STRIP IN SCH ×4 (05:45→23:50)
[2017-07-26] MEDS: INSULIN REGULAR, HUMAN 100 UNIT/ML 3 ML VIAL SQ PRN (05:45)
[2017-07-26 06:24] LABS: BASOPHILS # (AUTO) 0.1 /CMM (0.0-0.2); BASOPHILS % (AUTO) 0.5 % (0.0-2.0); EOSINOPHILS # (AUTO) 0.1 /CMM (0.0-0.7); EOSINOPHILS % (AUTO) 0.5 % (0.0-6.0); HEMATOCRIT 25 % (39-51); HEMOGLOBIN 7.9 g/dL (13.5-17.5); LYMPHOCYTES # (AUTO) 2.1 /CMM (0.8-4.8); LYMPHOCYTES % (AUTO) 17.6 % (20.0-44.0); MEAN CORPUSCULAR HEMOGLOBIN 32 PG (26.0-33.0); MEAN CORPUSCULAR HGB CONC 32 g/dl (31.0-36.0); MEAN CORPUSCULAR VOLUME 102 fL (80-96); MONOCYTES # (AUTO) 0.5 /CMM (0.1-1.30); MONOCYTES % (AUTO) 4.3 % (2.0-12.0); NEUTROPHILS # (AUTO) 9.1 /CMM (1.8-8.9); NEUTROPHILS % (AUTO) 77.1 % (43.0-81.0); RED BLOOD CELL COUNT(AUTO) 2.47 MIL/uL (4.5-6.0); WHITE BLOOD COUNT (AUTO) 11.8 K/uL (4.3-11.0)
[2017-07-26 06:47] LABS: BILIRUBIN,TOTAL 0.9 mg/dL (0.2-1.0); CALCIUM, SERUM 7.7 mg/dL (8.5-10.1); CREATININE 1.5 mg/dL (0.6-1.3); MAGNESIUM 1.8 mg/dL (1.8-2.4); PHOSPHORUS 2.9 mg/dL (2.5-4.9); POTASSIUM 3.4 mmol/L (3.5-5.1); TOTAL PROTEIN, SERUM 5.1 g/dL (6.4-8.2)
[2017-07-26 06:55] LABS: ALBUMIN 1.5 g/dL (3.4-5.0)
[2017-07-26 08:00] VITALS: BP 108/48
[2017-07-26 08:49] LABS: PLATELET COUNT (AUTO) 125 /CMM (150-450)
[2017-07-26] MEDS: LEVOTHYROXINE SODIUM 75 MCG TABLET PO SCH (10:45)
[2017-07-26] MEDS: VIT B CMPLX 3/FA/VIT C/BIOTIN 1 TAB TABLET PO SCH (10:45)
[2017-07-26] MEDS: PANTOPRAZOLE 40 MG VIAL IV SCH ×2 (10:45→17:04)
[2017-07-26] MEDS: PROSOURCE / PROSTAT (PYXIS) 30 ML UDC GT SCH (10:45)
[2017-07-26] MEDS: MUPIROCIN OINT 2% 22 GM TUBE SCH ×2 (11:56→21:50)
[2017-07-26 12:00] VITALS: BP 106/46
--- NOTE | 2017-07-26 13:58 | NUR ---
RT PT PLACED ON PMV FOR SWALLOW EVALUATION. SPEECH THERAPIST AND FAMILY BY BEDSIDE. PT SX AND TRACH CUFF DEFLATED PRIOR TO PLACING PMV INLINE. 3 MINUTES INTO PROCEDURE PT STARTED TO SHOW SIGNS OF RESPIRATORY DISTRESS. PROCEDURE STOPPED, PMV TAKEN OFF AND CUFF REINFLATED. PT RESPIRATORY STATUS APPEARS TO BE NORMAL, WILL CONTINUE TO MONITOR. Addendum: 07/26/17 at 1430 by SAVANNAH CLARK RT Amended: Links added.
--- NOTE | 2017-07-26 15:00 | NUR ---
RN NOTE SPOKE TO PT'S LASHELL, REGARDING DNR CODE STATUS, AND LACK OF ADV DIRECTIVES OR POLST. PT'S CONFIRMED DNR STATUS. RECOMMENDED TO FILL OUT POLST.
[2017-07-26 16:00] VITALS: BP_SYST 99; BP_DIAS 40; BP_DIAS 42
[2017-07-26 20:00] VITALS: BP 98/46
--- NOTE | 2017-07-26 20:00 | NUR ---
RN NOTE RECEIVED PT IN NO ACUTE DISRESS IN BED. PT IS A/O X 1 AND ABLE TO ANSWER BY NODDING HEAD YES, NO. PT IS ON MECHANICAL VENT VIA TRACH. TRACH SITE IS CLEAN DRY AND INTACT. PT IS NOT SHOWING ANY S/S OF SOB, DIFFICULTY BREATHING OR PAIN AT THIS TIME. PT HAS GTUBE THAT IS CLEAN DRY INTACT AND PATENT WITH NOVASOURCE @ 35ML/HR AND TOLERATING WELL WITH 0 RESIDUAL. PT HAS BILATERAL MITTENS AND FREQUENT CIRCULATORY CHECKS PERFORMED.PT HAS REGGIE PICC THAT IS CLEAN DRY INTACT AND PATENT WITH D5W + 10MEQ KCL @ 50ML/HR. BED IN LOW LOCK POSITION WITH RIALS UP X 2. CALL LIGHT WITHIN REACH AND ALL SAFETY MEASURES ENSURED AND CARRIED OUT. WILL CONTINUE TO MONITOR FOR ANY CHANGES IN CONDITION.
[2017-07-26] MEDS: LEVOFLOXACIN 500 MG /D5W 100ML 500 MG in PREMIX 1 EA IV SCH (21:50)
[2017-07-27] VITALS (8 sets, daily range): BP systolic 81–100; BP diastolic 36–53
[2017-07-27] MEDS: MEROPENEM 1 G in IV NS 0.9% 100 ML IV SCH ×3 (02:56→17:53)
[2017-07-27] MEDS: ALBUTEROL FS 2.5 MG/3 ML VIAL.NEB NEB SCH ×5 (03:42→19:57)
[2017-07-27] MEDS: BLOOD SUGAR DIAGNOSTIC 1 EACH STRIP IN SCH ×3 (05:16→18:03)
[2017-07-27] MEDS: METOCLOPRAMIDE HCL 10 MG/2 ML VIAL IV SCH ×3 (05:17→16:30)
[2017-07-27] MEDS: Potassium Chloride 10 MEQ in IV D5W 1,000 ML IV PRN (06:00)
--- NOTE | 2017-07-27 06:45 | NUR ---
RN CLOSING NOTE PT REMAINS IN NO ACUTE DISTRESS IN BED. PT DID NOT HAVE ANY SIGNIFICANT CHANGE IN CONDITION DURING SHIFT. PT TOLERATED VENT SETTING WELL. ALL NEEDS MET, ALL ORDERS CARRIED OUT. WILL ENDORSE CARE TO AM RN FOR CONTINUITY OF CARE.
--- NOTE | 2017-07-27 07:24 | NUR ---
RT PATIENT REC'D TRACHED ON [facility] VENT WITH SETTINGS SET BY TOLERATED WELL. VENT ALARMS CHECKED + AUDIBLE. TRACH SECURE AND IN PROPER POSITION. CUFF CHECKED DINKEY ENGINE FIRER. PATIENT SUCTIONED WITH SMALL/MOD AMT PALE SEMITHICK SECRETIONS. B/S DIM COARSE. PATIENT APPEARS COMFORTABLE AND IN NO DISTRESS AT THIS TIME. VENT PLUGGED INTO RED OUTLET. AMBU BAG AT [facility]. CONT CURRENT PLAN OF RESP CARE. Addendum: 07/27/17 at 0830 by MEGAN ZAFAR RT Amended: Links added.
--- NOTE | 2017-07-27 07:31 | NUR ---
MANAGER TALENT NOTE RECEIVED PT IN IN BED. PT IS A/O X 1 AND ,AWAKE ABLE TO ANSWER BY NODDING HEAD YES, NO. PT IS ON MECHANICAL VENT VIA TRACH. TRACH SITE IS CLEAN DRY AND INTACT. AMBU BAG AT [facility] ,PT IS NOT SHOWING ANY S/S OF SOB, DIFFICULTY BREATHING OR PAIN AT THIS TIME. PT HAS GTUBE WITH NOVASOURCE @ 35ML/HR AND TOLERATING WELL WITH N0 RESIDUAL. PT HAS BILATERAL MITTENS AND FREQUENT CIRCULATORY CHECKS PERFORMED.PT HAS REGGIE PICC THAT IS CLEAN DRY INTACT AND PATENT WITH D5W + 10MEQ KCL @ 50ML/HR. BED IN LOW LOCK POSITION. ON TELE MONITOR WITH V PACING HR 60 , WITH KULKARNI CATH TO GRAVITY WITH YELLOW COLOR URINE , WILL MONITOR CLOSELY
[2017-07-27] MEDS: LEVOTHYROXINE SODIUM 75 MCG TABLET PO SCH (07:56)
[2017-07-27] MEDS: PANTOPRAZOLE 40 MG VIAL IV SCH ×2 (08:00→16:11)
[2017-07-27] MEDS: VIT B CMPLX 3/FA/VIT C/BIOTIN 1 TAB TABLET PO SCH (08:01)
[2017-07-27] MEDS: PROSOURCE / PROSTAT (PYXIS) 30 ML UDC GT SCH (08:01)
[2017-07-27] MEDS: MUPIROCIN OINT 2% 22 GM TUBE SCH ×2 (08:01→21:53)
--- NOTE | 2017-07-27 09:37 | NUR ---
COMPUTER FORENSICS EXAMINER NOTE SPOKE WITH DR FERGUSON NOTIFIED THAT BP 81/49 ,NA YESTERDAY 149 ORDERED 1L NS BOLUS ORDER CARRIED OUT
[2017-07-27] MEDS ORDERED: IV NS 0.9% 500 ML IV ONE (10:00)
[2017-07-27 10:27] LABS: BASOPHILS # (AUTO) 0.1 /CMM (0.0-0.2); BASOPHILS % (AUTO) 0.6 % (0.0-2.0); EOSINOPHILS # (AUTO) 0.1 /CMM (0.0-0.7); EOSINOPHILS % (AUTO) 0.9 % (0.0-6.0); HEMATOCRIT 25 % (39-51); HEMOGLOBIN 7.8 g/dL (13.5-17.5); LYMPHOCYTES # (AUTO) 2.3 /CMM (0.8-4.8); LYMPHOCYTES % (AUTO) 21.7 % (20.0-44.0); MEAN CORPUSCULAR HEMOGLOBIN 32 PG (26.0-33.0); MEAN CORPUSCULAR HGB CONC 31 g/dl (31.0-36.0); MEAN CORPUSCULAR VOLUME 101 fL (80-96); MONOCYTES # (AUTO) 0.4 /CMM (0.1-1.30); MONOCYTES % (AUTO) 3.7 % (2.0-12.0); NEUTROPHILS # (AUTO) 7.9 /CMM (1.8-8.9); NEUTROPHILS % (AUTO) 73.1 % (43.0-81.0); PLATELET COUNT (AUTO) 128 /CMM (150-450); RDW COEFFICIENT OF VARIATION 22.1 (11.5-15.0); RED BLOOD CELL COUNT(AUTO) 2.45 MIL/uL (4.5-6.0); WHITE BLOOD COUNT (AUTO) 10.8 K/uL (4.3-11.0)
[2017-07-27 11:37] LABS: IRON, SERUM 23 ug/dl (50-175); TOTAL IRON BINDING CAPACITY 137 ug/dl (250-450)
--- NOTE | 2017-07-27 15:00 | NUR ---
telegraph repeater mechanic note unable to remove restrain still at risk to try to remove all lines
[2017-07-27] MEDS: ACETAMINOPHEN 650 MG/20.3 ML UDC GT PRN (16:11)
--- NOTE | 2017-07-27 17:00 | NUR ---
OFFICE SERVICES MANAGER NOTE PER DR ARIAS OK TO DISCHARGE BUT CALLED TO DR NOTIFIED THAT BP 83/41 ON ARM BUT ON LEG 131/72 STATED STILL OK TO DISCHARGE, CALLED TO [facility] NOTIFIED ABOUT BP ,STATED THAT WILL CALL US ,SPOKE WITH SIMONA
--- NOTE | 2017-07-27 18:22 | NUR ---
TELE RNNNOTE CALLED TO SNF AGAIN, SPOKE WITH GRETA LANGE , STATED THAT THAT UNABLE TO EXCEPT PATIENT BECAUSE BP ON ARM 83/41 , WILL INFORM RANDOLPH DURAN
--- NOTE | 2017-07-27 18:23 | NUR ---
COUNSEL NOTE SPOKE WITH RANDOLPH DURAN ,STATED THAT WILL INFORM DR ARIAS ABOUT BP AND SNF DISCHARGE ,WILL F\U Addendum: 07/27/17 at 1931 by VIVI HURTADO RN PER CASE MANAGE OK TO STAY OVERNIGHT TODAY
--- NOTE | 2017-07-27 20:00 | NUR ---
RN NOTE RECEIVED PT IN NO ACUTE DISRESS IN BED. PT IS A/O X 1 AND ABLE TO ANSWER BY NODDING HEAD YES, NO. PT IS ON MECHANICAL VENT VIA TRACH. TRACH SITE IS CLEAN DRY AND INTACT. PT IS NOT SHOWING ANY S/S OF SOB, DIFFICULTY BREATHING OR PAIN AT THIS TIME. PT HAS GTUBE THAT IS CLEAN DRY INTACT AND PATENT WITH NOVASOURCE @ 35ML/HR AND TOLERATING WELL WITH 0 RESIDUAL. PT HAS BILATERAL MITTENS AND FREQUENT CIRCULATORY CHECKS PERFORMED. PT HAS REGGIE PICC THAT IS CLEAN DRY INTACT AND PATENT WITH D5W + 10MEQ KCL @ 50ML/HR. BED IN LOW LOCK POSITION WITH RIALS UP X 2. CALL LIGHT WITHIN REACH AND ALL SAFETY MEASURES ENSURED AND CARRIED OUT. WILL CONTINUE TO MONITOR FOR ANY CHANGES IN CONDITION.
[2017-07-28] VITALS (7 sets, daily range): BP systolic 85–140; BP diastolic 32–83
[2017-07-28] MEDS: METOCLOPRAMIDE HCL 10 MG/2 ML VIAL IV SCH ×4 (00:22→17:30)
[2017-07-28] MEDS: BLOOD SUGAR DIAGNOSTIC 1 EACH STRIP IN SCH ×4 (00:23→18:00)
[2017-07-28] MEDS: ALBUTEROL FS 2.5 MG/3 ML VIAL.NEB NEB SCH ×7 (01:48→23:11)
[2017-07-28] MEDS: MEROPENEM 1 G in IV NS 0.9% 100 ML IV SCH ×3 (03:34→18:00)
[2017-07-28] MEDS: Potassium Chloride 10 MEQ in IV D5W 1,000 ML IV PRN ×2 (06:33→18:53)
--- NOTE | 2017-07-28 07:15 | NUR ---
RN NOTES PATIENT AWAKE, ALERT TO SELF ABLE TO MOUTH WORDS AND MAKE NEEDS KNOWN. PT TOLERATING CURRENT VENT SETTINGS WELL, RESPIRATIONS EVEN AND UNLABORED, IN NO APPARENT PAIN OR DISCOMFORT. KULKARNI CATHETER DRAINING YELLOW URINE, PATENT AND INTACT. PATIENT CLEAN DRY AND COMFORTABLE, REGGIE PICC PATENT AND INTACT NO REDNESS OR INFILTRATION. CALL LIGHT WITHIN EASY REACH, WILL CONTINUE TO MONITOR
[2017-07-28] MEDS: LEVOTHYROXINE SODIUM 75 MCG TABLET PO SCH (09:24)
[2017-07-28] MEDS: PROSOURCE / PROSTAT (PYXIS) 30 ML UDC GT SCH (09:24)
[2017-07-28] MEDS: PANTOPRAZOLE 40 MG VIAL IV SCH ×2 (09:24→17:00)
[2017-07-28] MEDS: VIT B CMPLX 3/FA/VIT C/BIOTIN 1 TAB TABLET PO SCH (09:25)
[2017-07-28] MEDS: MUPIROCIN OINT 2% 22 GM TUBE SCH ×2 (09:31→22:08)
--- NOTE | 2017-07-28 10:45 | NUR ---
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
--- NOTE | 2017-07-28 11:00 | NUR ---
tele rnnnote ambulance arrived, report given but bp 85/45 but ambulance not taking patient at this time spoke with dr wilson, spoke with ambulance and dr Sánchez admission doctor at [facility] ok to transfer but [place] javier charge nurse still refusing. will f\u
--- NOTE | 2017-07-28 11:00 | NUR ---
GAS REFRIGERATOR SERVICER NOTE \ PER DR ARIAS OK TO DISCHARGE TO SNF AWARE THAT BP8 85/32 STILL OK TO TRANSFER TO SNF PATIENT ON DNR STATUS
--- NOTE | 2017-07-28 11:00 | NUR ---
RN NOTES PATIENT AWAKE, ALERT TO SELF ABLE TO MOUTH WORDS AND MAKE NEEDS KNOWN. PT TOLERATING CURRENT VENT SETTINGS WELL, RESPIRATIONS EVEN AND UNLABORED. KULKARNI CATHETER DRAINING YELLOW URINE, PATENT AND INTACT. TYLENOL GIVEN FOR PAIN WILL CONTINUE TO MONITOR.PATIENT CLEAN DRY AND COMFORTABLE, JEAN PAUL PICC PATENT AND INTACT NO REDNESS OR INFILTRATION. CALL LIGHT WITHIN EASY REACH, ENDORSED TO NEXT SHIFT FOR CONTINUITY OF CARE
[2017-07-28] MEDS: MORPHINE SULFATE INJ 10 MG/ML DISP.SYRIN IV PRN (11:47)
[2017-07-28] MEDS: INSULIN REGULAR, HUMAN 100 UNIT/ML 3 ML VIAL SQ PRN (12:35)
--- NOTE | 2017-07-28 14:04 | NUR ---
teletypesetter operator note ua collected as ordered
--- NOTE | 2017-07-28 15:00 | NUR ---
PRODUCT MARKETING INTERN NOTE \ RANDOLPH LOCKSMITH APPRENTICE SPOKE WITH SNF RN CASE MANAGE GRETA LANGE ,PER RANDOLPH SAMAYOA TO TRANSFER
--- NOTE | 2017-07-28 17:00 | NUR ---
TRADE FACILITATOR NOTE AMBULANCE ARRIVED REPORT GIVEN , WENT TO SNF WITH STABLE CONDITION, PER DR JUANA SAMAYOA TO KEEP PICC LINE,REPORT WAS GIVEN TO GRETA LANGE AT 1200 THIS MORNING, AT BEDSIDE. ALL NEEDS ATTENDED
--- NOTE | 2017-07-28 18:30 | NUR ---
TURN OPERATOR NOTE BACK FROM SNF, ALERT WITH CONFUSION, AWAKE , PLACED ON TELE ,SR BP 113\61 HR 61 SAT 100% T 98.4 PLACED ON KCI MATRES, PLACED ON GTUBE FEEDING ORDERED ,KEEP HOB ELEVATED AT ALL TIME, RT UPPER ARM PICC LINE INTACT. NO S\S INFECTION NOTED, PLACED ON IVF ORDERED , BED IN LOWEST AND LOCKED POSITION ,CALL LIGHT WITHIN REACH , WILL CONT TO MONITOR CLOSELY, PLACED ON VENT SETTING TO TRACH, AMBU BAG AT HOB AT ALL TIME
[2017-07-28] MEDS ORDERED: MUPIROCIN OINT 2% 22 GM TUBE ONE (22:00)
[2017-07-29] VITALS: BP 108/41
[2017-07-29] MEDS: METOCLOPRAMIDE HCL 10 MG/2 ML VIAL IV SCH ×5 (00:10→23:26)
[2017-07-29] MEDS: BLOOD SUGAR DIAGNOSTIC 1 EACH STRIP IN SCH ×5 (00:15→23:32)
[2017-07-29] MEDS: MEROPENEM 1 G in IV NS 0.9% 100 ML IV SCH ×3 (01:22→17:18)
[2017-07-29] MEDS: MORPHINE SULFATE INJ 10 MG/ML DISP.SYRIN IV PRN (03:26)
[2017-07-29] MEDS: ALBUTEROL FS 2.5 MG/3 ML VIAL.NEB NEB SCH ×6 (03:49→23:53)
[2017-07-29 04:00] VITALS: BP 109/42
--- NOTE | 2017-07-29 06:56 | NUR ---
END OF SHIFT SUMMERY: PT IS IN A STABLE CONDITION, ON THE VESSEL SLAGMAN V-PACING . STILL ON FEEDING @ THE PRESCRIBED RATE. NO ACUTE RESPIRATORY/CARDIAC DISTRESS NOTED. WILL CONTINUE TO MONITOR AND ENDORSE IT TO AM SHIFT NURSE TO CONTINUE THE CARE.
--- NOTE | 2017-07-29 07:30 | NUR ---
RN NOTES RECEIVED PATIENT ON [facility] VENT WITH BREATHING NORMAL, EVEN AND UNLABORED. NO SOB NOTED. VENT SETTING REVIEWED AND VERIFIED. TOLERATED WELL. NO ACUTE DISTRESS NOTED. TELE MONITOR REVEALS V PACING, HR=78. REGGIE PICC LINE IS PATENT AND INTACT, RUNNING IVF PER ORDER. ON GT FEED NOVASOURCE @ 35CC/HR. TOLERATED WELL. NO RESIDUAL NOTED. ASPIRATION PRECAUTION TAKEN. HOB ELEVATED. F/C IS PATENT AND INTACT, DRAINING WITH GRAVITY. KEPT CLEAN, DRY AND COMFORTABLE. ALL NEEDS ATTENDED. SAFETY MEASURE OBSERVED. CALL LIGHT WITH IN REACH. WILL CONT TO MONITOR.
[2017-07-29 08:00] VITALS: BP 103/51
[2017-07-29] MEDS: LEVOTHYROXINE SODIUM 75 MCG TABLET PO SCH (08:06)
[2017-07-29] MEDS: PROSOURCE / PROSTAT (PYXIS) 30 ML UDC GT SCH (08:07)
[2017-07-29] MEDS: VIT B CMPLX 3/FA/VIT C/BIOTIN 1 TAB TABLET PO SCH (08:07)
[2017-07-29] MEDS: PANTOPRAZOLE 40 MG VIAL IV SCH ×2 (08:07→16:42)
[2017-07-29] MEDS: MUPIROCIN OINT 2% 22 GM TUBE SCH ×2 (08:08→21:27)
[2017-07-29 10:43] LABS: BASOPHILS % (AUTO) 0.3 % (0.0-2.0); EOSINOPHILS # (AUTO) 0.2 /CMM (0.0-0.7); EOSINOPHILS % (AUTO) 1.7 % (0.0-6.0); HEMATOCRIT 27 % (39-51); HEMOGLOBIN 8.6 g/dL (13.5-17.5); LYMPHOCYTES # (AUTO) 3.2 /CMM (0.8-4.8); LYMPHOCYTES % (AUTO) 26.4 % (20.0-44.0); MEAN CORPUSCULAR HEMOGLOBIN 32 PG (26.0-33.0); MEAN CORPUSCULAR HGB CONC 32 g/dl (31.0-36.0); MEAN CORPUSCULAR VOLUME 102 fL (80-96); MONOCYTES # (AUTO) 0.4 /CMM (0.1-1.30); MONOCYTES % (AUTO) 3.5 % (2.0-12.0); NEUTROPHILS # (AUTO) 8.2 /CMM (1.8-8.9); NEUTROPHILS % (AUTO) 68.1 % (43.0-81.0); PLATELET COUNT (AUTO) 159 /CMM (150-450); RDW COEFFICIENT OF VARIATION 22.4 (11.5-15.0); RED BLOOD CELL COUNT(AUTO) 2.67 MIL/uL (4.5-6.0); WHITE BLOOD COUNT (AUTO) 12.1 K/uL (4.3-11.0)
[2017-07-29 12:00] VITALS: BP 89/42
[2017-07-29] MEDS: MIDODRINE HCL (5MG) 5 MG TABLET PO SCH ×3 (12:16→16:42)
[2017-07-29] MEDS: ACETAMINOPHEN 650 MG/20.3 ML UDC GT PRN (13:40)
[2017-07-29] MEDS: IV D5/0.45 NACL 1,000 ML IV PRN (15:39)
[2017-07-29 16:00] VITALS: BP 79/37
--- NOTE | 2017-07-29 16:00 | NUR ---
NOTES PATIENT NOTED WITH BP 79/37, ASYMPTOMATIC. CALLED DR ARIAS WITH ORDER TO RECHECK MANUAL BP. MANUAL BP 80/40. CALLED MD WITH ORDER TO CANCELL D/C ORDER TODAY. MD DR ARIAS MADE AWARE PATIENT IS ON MIDODRINE 10MG TID. ORDER NOTED AND CARRIED OUT. WILL CONT TO MONITOR.
--- NOTE | 2017-07-29 18:44 | NUR ---
RN NOTES PATIENT ENDORSED TO NEXT SHIFT IN STABLE CONDITION WITH BREATHING NORMAL, EVEN AND UNLABORED, NO SOB NOTED. NO ACUTE DISTRESS NOTED. KEPT CLEAN, DRY AND COMFORTABLE. ALL NEEDS ATTENDED. SAFETY MEASURE OBSERVED. CALL LIGHT WITH IN REACH. WILL CONT TO MONITOR.
--- NOTE | 2017-07-29 19:30 | NUR ---
TELE/RN NOTES: RECEIVED PATIENT IN BED W/ HOB ELEVATED. A/O X 1-2. ABLE TO ANSWER QUESTIONS BY NODDING HIS HEAD YES/NO. ON MECH VENT TOLERATING SETTINGS WELL. NO SOB NOTED. NO FACIAL GRIMACE OR MOANING NOTED. NOT IN ANY ACUTE DISTRESS. TELE MONITOR REVEALS V PACING, HR=74. REGGIE PICC LINE IS PATENT AND INTACT, RUNNING IVF PER ORDER. ON GT FEED NOVASOURCE @ 35CC/HR. TOLERATED WELL. NO RESIDUAL NOTED. ASPIRATION PRECAUTION TAKEN. F/C IS PATENT AND INTACT, DRAINING WITH GRAVITY. KEPT CLEAN, DRY AND COMFORTABLE. ALL NEEDS ATTENDED. SAFETY MEASURE OBSERVED. CALL LIGHT WITH IN REACH. WILL CONTINUE TO MONITOR.
[2017-07-29 20:00] VITALS: BP 86/33
[2017-07-30] VITALS: BP 111/43
[2017-07-30] MEDS: MEROPENEM 1 G in IV NS 0.9% 100 ML IV SCH ×3 (01:01→18:33)
[2017-07-30 04:00] VITALS: BP 97/40
[2017-07-30] MEDS: ALBUTEROL FS 2.5 MG/3 ML VIAL.NEB NEB SCH ×6 (04:08→23:53)
[2017-07-30] MEDS: IV D5/0.45 NACL 1,000 ML IV PRN ×2 (04:41→18:59)
[2017-07-30] MEDS: METOCLOPRAMIDE HCL 10 MG/2 ML VIAL IV SCH ×4 (05:04→22:30)
[2017-07-30] MEDS: BLOOD SUGAR DIAGNOSTIC 1 EACH STRIP IN SCH ×3 (05:16→19:01)
--- NOTE | 2017-07-30 06:48 | NUR ---
TELE/RN NOTES: PT. IN BED SLEEPING W/ RESPIRATIONS EVEN AND UNLABORED. NO S/S OF FACIAL GRIMACE OR MOANING NOTED. NOT IN ANY ACUTE DISTRESS. CALL LIGHT W/ REACH. REPORT GIVEN TO NEXT SHIFT NURSE FOR ELO.
[2017-07-30 08:00] VITALS: BP 119/51
[2017-07-30] MEDS: LEVOTHYROXINE SODIUM 75 MCG TABLET PO SCH (08:39)
[2017-07-30] MEDS: PANTOPRAZOLE 40 MG VIAL IV SCH ×2 (08:39→18:59)
[2017-07-30] MEDS: PROSOURCE / PROSTAT (PYXIS) 30 ML UDC GT SCH (08:39)
[2017-07-30] MEDS: MIDODRINE HCL (5MG) 5 MG TABLET PO SCH ×3 (08:39→19:01)
[2017-07-30] MEDS: VIT B CMPLX 3/FA/VIT C/BIOTIN 1 TAB TABLET PO SCH (08:39)
[2017-07-30] MEDS: MUPIROCIN OINT 2% 22 GM TUBE SCH (08:40)
[2017-07-30] MEDS: SIMETHICONE SUSP 40 MG/0.6 ML BOTTLE PO PRN (08:41)
[2017-07-30] MEDS: RENAL NOVASOURCE 1,000 ML BOTTLE GT PRN (08:46)
[2017-07-30 08:52] LABS: CALCIUM, SERUM 7.7 mg/dL (8.5-10.1); CREATININE 1.1 mg/dL (0.6-1.3); MAGNESIUM 1.8 mg/dL (1.8-2.4); POTASSIUM 3.4 mmol/L (3.5-5.1)
--- NOTE | 2017-07-30 11:00 | NUR ---
RN NOTE SPOKE WITH [facility] SUBACUTE NURSE, THEY SAID THAT THEY WILL NOT ACCEPT PT UNLESS HIS BP MAINTAINED 120/70 MMHG, OTHERWISE BP WILL DROP SOON PT ARRIVES AND THEY WILL NEED TO SEND THE PT BACK TO HOSPITAL. WILL NOTIFY ABOUT THIS.
[2017-07-30 12:00] VITALS: BP 118/49
[2017-07-30] MEDS ORDERED: Potassium Chloride 10 MEQ in IV D5W 1,000 ML IV PRN (12:00)
[2017-07-30] MEDS: Potassium Chloride 10 MEQ in IV D5W 50 ML IV SCH ×2 (13:15→15:06)
[2017-07-30 16:00] VITALS: BP 138/58
[2017-07-30] MEDS ORDERED: ALBUMIN 25% 25 GM in PREMIX 1 EA IV SCH (16:30)
--- NOTE | 2017-07-30 19:00 | NUR ---
RN NOTE QUOTATION CHECKER KIMBERLY NOTIFIED ABOUT BP TRENDS, ALBUMIN LEVEL, AND LOW URINE OUTPUT. ALBUMIN IV ORDERED.
[2017-07-30] MEDS: ALBUMIN 25% 25 GM in PREMIX 1 EA IV SCH ×2 (19:02→22:30)
--- NOTE | 2017-07-30 19:30 | NUR ---
TELE/RN NOTES: RECEIVED PATIENT IN BED W/ HOB ELEVATED. A/O X 1-2. ABLE TO ANSWER QUESTIONS BY NODDING HIS HEAD YES/NO. [facility] TOLERATING SETTINGS WELL. NO SOB NOTED. NO FACIAL GRIMACE OR MOANING NOTED. NOT IN ANY ACUTE DISTRESS. TELE MONITOR REVEALS V PACING, HR=60 REGGIE PICC LINE IS PATENT AND INTACT, RUNNING IVF PER ORDER. ON GT FEED NOVASOURCE @ 35CC/HR. WILL CONTINUE TO MONITOR.
[2017-07-30 20:00] VITALS: BP 95/47
[2017-07-31] VITALS (10 sets, daily range): BP systolic 92–133; BP diastolic 40–79
[2017-07-31] MEDS: BLOOD SUGAR DIAGNOSTIC 1 EACH STRIP IN SCH ×5 (00:19→23:54)
[2017-07-31] MEDS: ALBUTEROL FS 2.5 MG/3 ML VIAL.NEB NEB SCH ×6 (04:28→23:19)
[2017-07-31] MEDS: ALBUMIN 25% 25 GM in PREMIX 1 EA IV SCH ×2 (05:20→12:33)
[2017-07-31] MEDS: METOCLOPRAMIDE HCL 10 MG/2 ML VIAL IV SCH ×4 (05:28→23:57)
[2017-07-31 06:29] LABS: BASOPHILS % (AUTO) 0.3 % (0.0-2.0); EOSINOPHILS # (AUTO) 0.2 /CMM (0.0-0.7); EOSINOPHILS % (AUTO) 2.3 % (0.0-6.0); HEMATOCRIT 24 % (39-51); HEMOGLOBIN 7.6 g/dL (13.5-17.5); LYMPHOCYTES # (AUTO) 2.9 /CMM (0.8-4.8); LYMPHOCYTES % (AUTO) 27.8 % (20.0-44.0); MEAN CORPUSCULAR HEMOGLOBIN 33 PG (26.0-33.0); MEAN CORPUSCULAR HGB CONC 32 g/dl (31.0-36.0); MEAN CORPUSCULAR VOLUME 102 fL (80-96); MONOCYTES # (AUTO) 0.3 /CMM (0.1-1.30); MONOCYTES % (AUTO) 2.9 % (2.0-12.0); NEUTROPHILS # (AUTO) 6.8 /CMM (1.8-8.9); NEUTROPHILS % (AUTO) 66.7 % (43.0-81.0); PLATELET COUNT (AUTO) 194 /CMM (150-450); RDW COEFFICIENT OF VARIATION 21.4 (11.5-15.0); RED BLOOD CELL COUNT(AUTO) 2.32 MIL/uL (4.5-6.0); WHITE BLOOD COUNT (AUTO) 10.3 K/uL (4.3-11.0)
[2017-07-31 06:56] LABS: CALCIUM, SERUM 7.9 mg/dL (8.5-10.1); MAGNESIUM 1.8 mg/dL (1.8-2.4); PHOSPHORUS 2.7 mg/dL (2.5-4.9); POTASSIUM 3.7 mmol/L (3.5-5.1)
[2017-07-31] MEDS: PROSOURCE / PROSTAT (PYXIS) 30 ML UDC GT SCH (08:02)
[2017-07-31] MEDS: ACETAMINOPHEN 650 MG/20.3 ML UDC GT PRN (08:02)
[2017-07-31] MEDS: VIT B CMPLX 3/FA/VIT C/BIOTIN 1 TAB TABLET PO SCH (08:02)
[2017-07-31] MEDS: LEVOTHYROXINE SODIUM 75 MCG TABLET PO SCH (08:03)
[2017-07-31] MEDS: SIMETHICONE SUSP 40 MG/0.6 ML BOTTLE PO PRN (08:03)
[2017-07-31] MEDS: PANTOPRAZOLE 40 MG VIAL IV SCH ×2 (08:03→16:20)
[2017-07-31] MEDS: MIDODRINE HCL (5MG) 5 MG TABLET PO SCH ×3 (08:08→16:22)
[2017-07-31] MEDS ORDERED: BISACODYL SUPP (10 MG) 10 MG/SUPP.RECT SUPP.RECT RC PRN (13:30)
[2017-07-31] MEDS ORDERED: FUROSEMIDE 20 MG/2 ML VIAL IV PRN (15:00)
--- NOTE | 2017-07-31 17:30 | NUR ---
RN NOTE PER DR GARCIA TO TRANSFUSE 1 UNIT OF [facility], AND TO GIVE LASIX 20 MG POST TRANSFUSION, PT TOLERATED TRANSFUSION WELL, NO REACTION NOTED.
--- NOTE | 2017-07-31 19:50 | NUR ---
RN NOTE PT WAS SUPPOSED TO BE DISCHARGED TO [facility], REPORT GIVEN TO ANDRE, BUT WHEN AMBULANCE WAS ABOUT TO TRANFER HIM HE BECAME SOB, RT CALLED AND BREATHING TREATMENT GIVEN, ENDORSED TO LEGISLATORS NURSE.
--- NOTE | 2017-07-31 19:55 | NUR ---
RN INITIAL NOTES RECEIVED REPORT FROM DAY SHIFT NURSE PAN. PATIENT PLACED BACK IN HOSPITAL BED, ROOM 109. PATIENT WAS TO BE DC'D BUT BECAME SOB. RT CALLED STAT TO ADMINISTER BREATHING TREATMENT. AMBULANCE STAFF AT BEDSIDE ON STANDBY TO POSSIBLY TAKE THE PATIENT BACK TO [facility]. BREATHING TREATMENT INEFFECTIVE, PATIENT STILL NOT STABLE FOR TRANSPORT. DR JERAMY DE LEON MADE AWARE. PER JERAMY DE LEON, HOLD DC AT THIS TIME
--- NOTE | 2017-07-31 20:37 | NUR ---
RN NOTES Mykel from [facility] called. Notified him that patient had SOB during transfer to [facility] . Will hold off with discharge for andrew.
[2017-08-01] VITALS: BP 137/49
[2017-08-01] MEDS: ALBUTEROL FS 2.5 MG/3 ML VIAL.NEB NEB SCH ×2 (03:08→07:58)
[2017-08-01 04:00] VITALS: BP 127/70
[2017-08-01] MEDS: RENAL NOVASOURCE 1,000 ML BOTTLE GT PRN (05:12)
[2017-08-01] MEDS: METOCLOPRAMIDE HCL 10 MG/2 ML VIAL IV SCH (05:13)
[2017-08-01] MEDS: BLOOD SUGAR DIAGNOSTIC 1 EACH STRIP IN SCH (05:13)
[2017-08-01 07:05] LABS: CALCIUM, SERUM 7.4 mg/dL (8.5-10.1); CREATININE 0.9 mg/dL (0.6-1.3); MAGNESIUM 1.7 mg/dL (1.8-2.4); PHOSPHORUS 3.1 mg/dL (2.5-4.9); POTASSIUM 3.7 mmol/L (3.5-5.1)
--- NOTE | 2017-08-01 07:30 | NUR ---
RN NOTES RECEIVED PATIENT ON [facility] VENT WITH BREATHING NORMAL, EVEN AND UNLABORED. NO SOB NOTED. VENT SETTING REVIEWED AND VERIFIED. TOLERATED WELL. NO ACUTE DISTRESS NOTED. TELE MONITOR REVEALS V PACING, HR=60. John Paul PICC LINE IS PATENT AND INTACT. ON GT FEED NOVASOURCE @ 35CC/HR. TOLERATED WELL. NO RESIDUAL NOTED. ASPIRATION PRECAUTION TAKEN. HOB ELEVATED. F/C IS PATENT AND INTACT, DRAINING WITH GRAVITY. KEPT CLEAN, DRY AND COMFORTABLE. ALL NEEDS ATTENDED. SAFETY MEASURE OBSERVED. CALL LIGHT WITH IN REACH. WILL CONT TO MONITOR.
[2017-08-01 08:00] VITALS: BP 107/53
[2017-08-01 08:17] LABS: BASOPHILS % (AUTO) 0.3 % (0.0-2.0); EOSINOPHILS # (AUTO) 0.1 /CMM (0.0-0.7); EOSINOPHILS % (AUTO) 1.1 % (0.0-6.0); HEMATOCRIT 28 % (39-51); HEMOGLOBIN 9.3 g/dL (13.5-17.5); LYMPHOCYTES % (AUTO) 18.1 % (20.0-44.0); MEAN CORPUSCULAR HEMOGLOBIN 32 PG (26.0-33.0); MEAN CORPUSCULAR HGB CONC 33 g/dl (31.0-36.0); MEAN CORPUSCULAR VOLUME 97 fL (80-96); MONOCYTES # (AUTO) 0.3 /CMM (0.1-1.30); MONOCYTES % (AUTO) 2.6 % (2.0-12.0); NEUTROPHILS # (AUTO) 8.6 /CMM (1.8-8.9); NEUTROPHILS % (AUTO) 77.9 % (43.0-81.0); PLATELET COUNT (AUTO) 176 /CMM (150-450); RDW COEFFICIENT OF VARIATION 22.8 (11.5-15.0); RED BLOOD CELL COUNT(AUTO) 2.92 MIL/uL (4.5-6.0); WHITE BLOOD COUNT (AUTO) 11.1 K/uL (4.3-11.0)
[2017-08-01] MEDS: LEVOTHYROXINE SODIUM 75 MCG TABLET PO SCH (08:25)
[2017-08-01] MEDS: PROSOURCE / PROSTAT (PYXIS) 30 ML UDC GT SCH (08:26)
[2017-08-01] MEDS: VIT B CMPLX 3/FA/VIT C/BIOTIN 1 TAB TABLET PO SCH (08:26)
[2017-08-01] MEDS: PANTOPRAZOLE 40 MG VIAL IV SCH (08:26)
[2017-08-01 08:34] VITALS: BP 107/53
[2017-08-01] MEDS: MIDODRINE HCL (5MG) 5 MG TABLET PO SCH (08:34)
[2017-08-01] MEDS ORDERED: MAGNESIUM OXIDE 400 MG TABLET PO ONE (09:00)
[2017-08-01] MEDS ORDERED: Magnesium 1GM/D5W 100ML PREMIX 100 ML IV SCH (10:22)
--- NOTE | 2017-08-01 10:37 | NUR ---
RN NOTES PATIENT DISCHARGED IN STABLE CONDITION WITH BREATHING NORMAL, EVEN AND UNLABORED. NO SOB NOTED. NO ACUTE DISTRESS NOTED. DISCHARGE INSTRUCTION GIVEN TO GEETA LANGE IN SNF. UNDERSTOOD WELL. PATIENT LEFT VIA AMBULANCE IN STABLE CONDITION. SISTER AT BEDSIDE.
[2017-08-01] MEDS ORDERED: NUTR100037 PO (13:30)
== END 2017-08-01 10:38 | DRG 130 ==
LOC: ER 09:08 → ICU 11:00 → TELE-TD 07-23 04:58 → TELE1 07-23 09:58
PROVIDERS: ADMIT Family Medicine; ATTEND Family Medicine
PROC: 5A1955Z Respiratory Ventilation, Greater than 96 Consecutive Hours (ICD-10-PCS; principal; 2017-07-13)
PROC: 02HV33Z Insertion of Infusion Device into Superior Vena Cava, Percutaneous Approach (ICD-10-PCS; principal; 2017-07-13)
PROC: 30233N1 Transfusion of Nonautologous Red Blood Cells into Peripheral Vein, Percutaneous Approach (ICD-10-PCS; principal; 2017-07-13)
DX: J95.851 Ventilator associated pneumonia (principal); I21.4 Non-ST elevation (NSTEMI) myocardial infarction; N17.0 Acute kidney failure with tubular necrosis; R65.21 Severe sepsis with septic shock; J69.0 Pneumonitis due to inhalation of food and vomit; A41.9 Sepsis, unspecified organism; G92 Toxic encephalopathy; J96.11 Chronic respiratory failure with hypoxia; Z99.11 Dependence on respirator [ventilator] status; E72.20 Disorder of urea cycle metabolism, unspecified; Z93.0 Tracheostomy status; D64.9 Anemia, unspecified; D69.6 Thrombocytopenia, unspecified; E03.9 Hypothyroidism, unspecified; E87.0 Hyperosmolality and hypernatremia; E87.6 Hypokalemia; Z93.1 Gastrostomy status; R13.10 Dysphagia, unspecified; Z66 Do not resuscitate; Z22.322 Carrier or suspected carrier of Methicillin resistant Staphylococcus aureus; Z88.7 Allergy status to serum and vaccine; Z79.4 Long term (current) use of insulin; Z79.82 Long term (current) use of aspirin; Z79.899 Other long term (current) drug therapy; Z92.21 Personal history of antineoplastic chemotherapy; Z87.891 Personal history of nicotine dependence; Z92.3 Personal history of irradiation; J45.909 Unspecified asthma, uncomplicated; J44.9 Chronic obstructive pulmonary disease, unspecified; N39.0 Urinary tract infection, site not specified; I13.0 Hypertensive heart and chronic kidney disease with heart failure and stage 1 through stage 4 chronic kidney disease, or unspecified chronic kidney disease; I25.10 Atherosclerotic heart disease of native coronary artery without angina pectoris; N18.9 Chronic kidney disease, unspecified; E87.2 Acidosis; Z85.118 Personal history of other malignant neoplasm of bronchus and lung; I50.9 Heart failure, unspecified; E78.5 Hyperlipidemia, unspecified; I48.0 Paroxysmal atrial fibrillation; K92.2 Gastrointestinal hemorrhage, unspecified; K56.0 Paralytic ileus; R18.8 Other ascites; B96.20 Unspecified Escherichia coli [E. coli] as the cause of diseases classified elsewhere; Z16.12 Extended spectrum beta lactamase (ESBL) resistance; I25.2 Old myocardial infarction; E43 Unspecified severe protein-calorie malnutrition; Y84.9 Medical procedure, unspecified as the cause of abnormal reaction of the patient, or of later complication, without mention of misadventure at the time of the procedure; Y82.9 Unspecified medical devices associated with adverse incidents; Y92.129 Unspecified place in nursing home as the place of occurrence of the external cause; B96.6 Bacteroides fragilis [B. fragilis] as the cause of diseases classified elsewhere; K52.1 Toxic gastroenteritis and colitis; T47.4X5A Adverse effect of other laxatives, initial encounter; K59.03 Drug induced constipation; G90.1 Familial dysautonomia [Riley-Day]
CPT/HCPCS: 31720; 36415; 36569; 36600; 70450-TC; 71010-TC; 74000-TC; 80048-TC; 80053-TC; 80076-TC; 80202-TC; 81000-TC; 82040-TC; 82140-TC; 82272-TC; 82550-TC; 82962-TC; 83540-TC; 83605-TC; 83735-TC; 83880; 83970; 84100-TC; 84155; 84165; 84484-TC; 85025-TC; 85730-TC; 86850-TC; 86921-TC; 87040-TC; 87070-TC; 87081-TC; 87086-TC; 87186-TC; 87400; 92611-TC; 94003-TC; 94760-TC; 94762-TC; A4216; A4606; A6402; A6403; A7526; C1751; C9113; J1815; J1940; J1956; J2060; J2185; J2270; J2543; J2765; J3370; J3480; J3490; J7030; J7040; J7050; J7060; J7070; P9016-BL; P9047; Z7610

== ENCOUNTER 2017-08-01 12:09 | Emergency (ER) | payer MEDICAID ==
[~2017-08-01] VITALS: Ht 170.2 cm; Wt 104.3 kg
[~2017-08-01 12:09] MED LIST changes: +ACET-2605 GT; +ACET650S26 GT; +AMIN30LI4 GT; +AMIO200T2 GT; +ASCO500S2 GT; +BISA10SU8 RC; +BLOO-668 IN; +CLON0.5T4 GT; -COLE625T PO; +DOCU50LI GT; +ENOX40DI SQ; +ERYT200S16 GT; +FAMO-131 GT; -FLUT1DIS3 IH; +FURO40TA5 GT; +INSU100V3 SQ; +IPRA3AMP IH; +LACT-96 GT; +MAGN400O6 GT; +MULT1TAB11 GT; +NA P133E RC; -PRAV20TA PO; +SENN8.6T6 GT; +SIME80TA15 GT; +TRAM50TA2 GT; +ZINC220C8 GT
--- NOTE | 2017-08-01 12:32 | NUR ---
MODE FROM [facility] DT LOW BLOOD PRESSURE. PER REPORT PT WAS DISCHARGED FROM FLOOR EARLIER HOWEVER [facility] REFUSED TO TAKE THE PATIENT BACK DT LOW BLOOD PRESSURE READING. PATIENT IS AAO3. APPEARS IN NO APPARENT DISTRESS. RESPIRATION EVEN AND UNLABORED. SKIN IS WARM TO TOUCH AND NON DIAPHOREC, AFEBRILE. PICC LINE ON JEAN PAUL NOTED- NO BLOOD RETURN, NO RESISTANCE UPON FLUSHING. PT IS VENT TRACHE DEPENDENT ORDERED. VSS
[2017-08-01 12:45] VITALS: BP 83/42
--- NOTE | 2017-08-01 12:48 | NUR ---
PT REC'D TRACHED [facility] VIA [facility] VENT. NOTED VENT SETTINGS GIVEN FROM TRANSPORT RT. NO RESP DISTRESS NOTED. WELT RANDER CUFF PRESSURE NOTED. ALARMS ARE SET AND AUDIBLE, AMBU BAG BEDSIDE. WILL CONTINUE TO MONITOR. Addendum: 08/01/17 at 1249 by JAXON HUGHES RT Amended: Links added.
[2017-08-01 12:53] LABS: BASOPHILS # (AUTO) 0.1 /CMM (0.0-0.2); BASOPHILS % (AUTO) 0.9 % (0.0-2.0); EOSINOPHILS # (AUTO) 0.1 /CMM (0.0-0.7); EOSINOPHILS % (AUTO) 0.8 % (0.0-6.0); HEMATOCRIT 28 % (39-51); LYMPHOCYTES # (AUTO) 1.9 /CMM (0.8-4.8); LYMPHOCYTES % (AUTO) 20.7 % (20.0-44.0); MEAN CORPUSCULAR HEMOGLOBIN 31 PG (26.0-33.0); MEAN CORPUSCULAR HGB CONC 32 g/dl (31.0-36.0); MEAN CORPUSCULAR VOLUME 97 fL (80-96); MONOCYTES # (AUTO) 0.3 /CMM (0.1-1.30); MONOCYTES % (AUTO) 3.2 % (2.0-12.0); NEUTROPHILS # (AUTO) 6.7 /CMM (1.8-8.9); NEUTROPHILS % (AUTO) 74.4 % (43.0-81.0); PLATELET COUNT (AUTO) 216 /CMM (150-450); RDW COEFFICIENT OF VARIATION 21.1 (11.5-15.0); RED BLOOD CELL COUNT(AUTO) 2.89 MIL/uL (4.5-6.0); WHITE BLOOD COUNT (AUTO) 9.1 K/uL (4.3-11.0)
[2017-08-01 13:00] LABS: POTASSIUM 3.3 mmol/L (3.5-5.1)
[2017-08-01 13:05] LABS: ALBUMIN 2.1 g/dL (3.4-5.0); BILIRUBIN,DIRECT 0.4 mg/dL (0.0-0.2); BILIRUBIN,TOTAL 0.7 mg/dL (0.2-1.0); TOTAL PROTEIN, SERUM 5.2 g/dL (6.4-8.2)
[2017-08-01] MEDS ORDERED: NUTR100037 PO (13:30)
[2017-08-01 13:40] VITALS: BP 91/54
--- NOTE | 2017-08-01 14:23 | NUR ---
admitting nurse not available
--- NOTE | 2017-08-01 14:48 | NUR ---
REPORT GIVEN TO NAZARIO COX FOR ELO
--- NOTE | 2017-08-01 15:18 | NUR ---
DR. MALAVE AT BEDSIDE
--- NOTE | 2017-08-01 15:28 | NUR ---
CALLED [facility] FOR TRANSPORT TO [facility], ETA 90 MIN
--- NOTE | 2017-08-01 15:29 | NUR ---
TRIED GIVING REPORT TO [facility]- SPOKE WITH AYAN, ADMISSION COORDINATOR AND REFUSED TO TAKE REPORT. PER AYAN THE FACILITY IS NOT COMFORTABLE TAKING THE PT BACK AT THIS TIME DUE TO EPISODE OF LOW BP. EXPLAINED THAT PT WAS SEEN AND EXAMINED BY ER DOCTOR AND DR. MALAVE AND THAT BP HAS BEEN STABLE-- 119/64 AT THIS TIME, BUT SHE STRONGLUY REFUSED. NOTIFIED HER DR. MALAVE WILL BE CALLING THE FACILITY.
--- NOTE | 2017-08-01 15:30 | NUR ---
DAPHNIE GARCIA PEOPLESOFT DEVELOPER MADE AWARE THAT [facility] REFUSED TO TAKE REPORT
--- NOTE | 2017-08-01 15:45 | NUR ---
DAPHNIE CONTINUOUS DRIER HELPER AT BEDSIDE
[2017-08-01] MEDS: MIDODRINE HCL (5MG) 5 MG TABLET PO ONE (16:24)
--- NOTE | 2017-08-01 16:29 | NUR ---
REPORT GIVEN TO MARISELA ROBERTSON FOR CONTINUITY OF CARE AT [facility].
[2017-08-01 16:36] VITALS: BP 125/70
[2017-08-01 17:05] VITALS: BP 140/67
--- NOTE | 2017-08-01 17:05 | NUR ---
PATIENT WAS TRANSPORTED TO [facility] VIA AMBULANZ. BP 140/57, HR 60. AT BEDSIDE.
[2017-08-01] MEDS ORDERED: *INSULIN REGULAR(HUMULIN R)HUM 100 UNIT/ML VIAL SQ PRN (18:30)
[2017-08-01] MEDS ORDERED: Medication Not On Formulary EA (Ipratropium/Albuterol Sulfate (Duoneb 2.5-0.5 Mg/3 Ml So IH PRN (18:30)
[2017-08-01] MEDS ORDERED: MAGNESIUM HYDROXIDE 30 ML UDC PO PRN (18:30)
[2017-08-01] MEDS ORDERED: MAGNESIUM HYDROXIDE 30 ML UDC GT PRN (18:30)
[2017-08-01] MEDS ORDERED: clonazePAM 0.5 MG TABLET GT PRN (18:30)
[2017-08-01] MEDS ORDERED: ACETAMINOPHEN 650 MG/20.3 ML UDC GT PRN (18:30)
[2017-08-01] MEDS ORDERED: NA PHOS,M-B/NA PHOS,DI-BA 1 EA ENEMA RC PRN (18:30)
[2017-08-01] MEDS ORDERED: ONDANSETRON HCL/PF 4 MG/2 ML VIAL IVP PRN (18:30)
[2017-08-01] MEDS ORDERED: ZOLPIDEM TARTRATE 5 MG TABLET PO PRN (18:30)
[2017-08-01] MEDS ORDERED: HYDROCODONE/APAP 5/325MG 1 EACH TABLET GT PRN (18:30)
[2017-08-01] MEDS ORDERED: Z GUARD REMEDY 2 OZ OINT TP PRN (18:30)
[2017-08-01] MEDS ORDERED: MISCELLANEOUS MED 1 EA EA GT PRN (18:30)
[2017-08-01] MEDS ORDERED: DEXTROSE 50%-WATER 50 ML DISP.SYRIN IV PRN (18:30)
[2017-08-01] MEDS ORDERED: MAG HYDROX/AL HYDROX/SIMETH 30 ML UDC PO PRN (18:30)
[2017-08-01] MEDS ORDERED: INSULIN REGULAR, HUMAN 100 UNIT/ML 3 ML VIAL SQ PRN (18:30)
[2017-08-01] MEDS ORDERED: ACETAMINOPHEN 325 MG TABLET PO PRN (18:30)
[2017-08-01] MEDS ORDERED: RENAL NOVASOURCE 1,000 ML BOTTLE GT PRN (19:00)
[2017-08-01] MEDS ORDERED: IPRATROPIUM NEB FS 0.5 MG/2.5 ML AMPUL.NEB NEB PRN (19:00)
[2017-08-01] MEDS ORDERED: ALBUTEROL FS 2.5 MG/0.5 ML VIAL.NEB NEB PRN (19:00)
[2017-08-01] MEDS ORDERED: TRAMADOL HCL 50 MG TABLET GT SCH (21:00)
[2017-08-01] MEDS ORDERED: BLOOD SUGAR DIAGNOSTIC 1 EACH STRIP VI SCH (22:00)
[2017-08-02] MEDS ORDERED: BLOOD SUGAR DIAGNOSTIC 1 EACH STRIP IN SCH
[2017-08-02] MEDS ORDERED: ERYTHROMYCIN ETHYLSUCCINATE 200 MG/5 ML SUSPENSION GT SCH
[2017-08-02] MEDS ORDERED: ASPIRIN EC 81 MG TABLET.DR PO SCH (09:00)
[2017-08-02] MEDS ORDERED: ASCORBIC ACID 500 MG TABLET GT SCH (09:00)
[2017-08-02] MEDS ORDERED: FAMOTIDINE (20 MG) 20 MG TABLET GT SCH (09:00)
[2017-08-02] MEDS ORDERED: MIDODRINE HCL (5MG) 5 MG TABLET GT SCH (09:00)
[2017-08-02] MEDS ORDERED: MULTIVIT, IRON, MIN NO. 8, FA 1 TAB GT SCH (09:00)
[2017-08-02] MEDS ORDERED: PROSOURCE / PROSTAT (PYXIS) 30 ML UDC GT SCH (09:00)
[2017-08-02] MEDS ORDERED: DOCUSATE SODIUM LIQ 100 MG/10 ML UDC GT SCH (09:00)
[2017-08-02] MEDS ORDERED: FUROSEMIDE 40 MG TABLET GT SCH (09:00)
[2017-08-02] MEDS ORDERED: SENNOSIDES 8.6 MG TABLET GT SCH (09:00)
[2017-08-02] MEDS ORDERED: SIMETHICONE 80 MG TAB.CHEW GT SCH (09:00)
[2017-08-02] MEDS ORDERED: ZINC SULFATE 220 MG CAPSULE GT SCH (09:00)
[2017-08-02] MEDS ORDERED: LEVOTHYROXINE SODIUM 50 MCG TABLET GT SCH (09:00)
[2017-08-02] MEDS ORDERED: ENOXAPARIN SODIUM 40 MG/0.4 ML DISP.SYRIN SQ SCH (09:00)
[2017-08-02] MEDS ORDERED: AMIODARONE HCL 200 MG TABLET GT SCH (09:00)
[2017-08-03] MEDS ORDERED: BISACODYL SUPP (10 MG) 10 MG/SUPP.RECT SUPP.RECT RC SCH (18:30)
== END 2017-08-01 17:07 | disposition home or self-care (01) ==
LOC: ER 12:11 → UNDOADMIN 14:10 → TELE1 14:10 → UNDODISIN 20:30
DX: I95.9 Hypotension, unspecified (principal); I13.0 Hypertensive heart and chronic kidney disease with heart failure and stage 1 through stage 4 chronic kidney disease, or unspecified chronic kidney disease; N18.9 Chronic kidney disease, unspecified; I50.9 Heart failure, unspecified; F17.200 Nicotine dependence, unspecified, uncomplicated; I48.91 Unspecified atrial fibrillation; I21.4 Non-ST elevation (NSTEMI) myocardial infarction; E03.9 Hypothyroidism, unspecified; J44.9 Chronic obstructive pulmonary disease, unspecified; Z98.890 Other specified postprocedural states; Z95.0 Presence of cardiac pacemaker; Z46.89 Encounter for fitting and adjustment of other specified devices; Z23 Encounter for immunization; Z93.1 Gastrostomy status; Z79.82 Long term (current) use of aspirin; Z79.4 Long term (current) use of insulin; Z85.118 Personal history of other malignant neoplasm of bronchus and lung
CPT/HCPCS: 36415; 80048-TC; 80076-TC; 85025-TC; 87081-TC; A4606; J1815; Z7610